=== PATIENT | female | born 1980 | race Caucasian/White ===

== ENCOUNTER 2025-02-24 13:52 | Inpatient (IN) ==
--- NOTE | 2025-02-24 13:59 | Emergency Department Note ---
Impression & Plan Pericardial effusion, Pleural effusion, Bilateral edema of lower extremity, Hypothyroidism, Anxiety ED Provider Note NAME: JEN MARIEE AGE: 45 SEX: F : 1980 ARRIVES VIA: Ambulance INFORMANT: Patient, ED PROVIDER(S): Eligio Malagon DO CHIEF COMPLAINT: Fluid retention HPI: The patient is a 45-year-old female who presented to the emergency department from the [facility] for fluid retention. The patient has other complaints that she has been noticing over the course the last several days. The patient has been having problems with leg swelling abdominal distention weight gain chest pain difficulty breathing as well as headache. She had outpatient labs done at the [facility] which included a TSH that was elevated. She was sent to the emergency department for further evaluation. She denies having any hemoptysis. ROS: See above HPI for pertinent positives & negatives. A total of 10 systems reviewed and were otherwise negative. PAST MEDICAL HISTORY: See Below PAST SURGICAL HISTORY: See Below FAMILY HISTORY: See Below SOCIAL HISTORY: See Below HOME MEDICATIONS: See Below ALLERGIES: See Below VITALS: See Below PHYSICAL EXAMINATION: GENERAL: Patient is awake alert in no acute distress patient is resting comfortably and showing no signs of anxiety EYES: The conjunctivae are clear. The pupils are round and reactive. EARS, NOSE, MOUTH AND THROAT: The nose is without any evidence of any deformity. NECK: The neck is nontender and supple. RESPIRATORY: Normal respiratory effort is noted there is no evidence of wheezing rhonchi or rales CARDIOVASCULAR: Regular rate and rhythm noted there no murmurs rubs or gallops normal S1 normal S2. GASTROINTESTINAL: The abdomen is distended. There is diffuse tenderness to palpation but no specific guarding or rigidity. MUSCULOSKELETAL/EXTREMITIES: There is no evidence of gross deformity full range of motion is noted in the hips and shoulders. SKIN: Lower extremity edema was noted bilaterally. NEUROLOGIC: Patient is awake alert and oriented x3 strength is symmetric patellar reflexes are 2+ bilaterally MEDICAL DECISION MAKING: The patient is a 45-year-old female who presented to the emergency department for an evaluation of lower extremity swelling abdominal distention chest pain trouble breathing as well as a headache. The patient is currently at the [facility] inpatient treatment. She had outpatient labs done which showed her TSH was very high. She was sent to the emergency department today for further workup. Patient's vital signs are reassuring. I discussed patient's laboratory and radiographic studies with her. She was found have signs of a small pleural effusion as well as a possible pericardial effusion. She may require further cardiac workup but I do not feel she would be able to arrange this as an outpatient given her current situation. For this reason I discussed her condition with the on-call [facility] hospitalist. Triage Nursing notes reviewed. Prior medical records reviewed Vital Signs: reviewed and remarkable for no significant abnormalities Differential diagnosis: Cardiac ischemia, aortic dissection, pulmonary embolism, pneumothorax, pneumonia, pericarditis, myocarditis, esophageal rupture, GERD, cholecystitis, pancreatitis, musculoskeletal, as well as other pathologies. ER treatment provided: See below Diagnostics interpreted by me: ECG: EKG was obtained in the emergency department. My interpretation is normal sinus rhythm at 76 bpm. There is no ectopy. There is no acute ST segment abnormalities noted. QTc was 461 ms. Cardiac Monitoring: An order was placed for continuous cardiac monitoring. The monitor shows a rate of 75 bpm with sinus rhythm. Laboratory studies: As stated above and show below. Imaging studies: See below. Radiographic imaging was reviewed by myself Consultation(s): I discussed this case with Dr. Mehta who is on-call for the [facility] group. Past Med/Surg History Problem List (Updated 02/24/25 @ 17:17 by Eligio Malagon DO) Anxiety (Acute) Hypothyroidism (Acute) Bilateral edema of lower extremity (Acute) Pleural effusion (Acute) Pericardial effusion (Acute) Medical History Bipolar disorder Depression with anxiety Hypothyroid Social History Smoking Status: Unknown if ever smoked Preferred Language: Spanish Feels Safe at Home: Yes Results & Data (ED) Vital Signs Vital Signs - 24 hr 02/24/25 13:57 02/24/25 13:59 02/24/25 14:08 Temperature 37.3 C Temperature Source Oral Pulse Rate 78 90 Pulse Rate from SpO2 Sensor Pulse Rhythm Regular Respiratory Rate 18 Respiratory Effort / Characteristics Non-Labored Spontaneous Respiratory Depth Normal Respiratory Pattern Regular Blood Pressure 178/73 H Blood Pressure Mean 108 Blood Pressure Position Sitting Pulse Oximetry 96 96 Oxygen Delivery Method Room Air Sepsis Recent Fever Within 48 Hours No Sepsis New/Unexplained Change in Mental Status No Sepsis Action Taken by Nursing No Action Required 02/24/25 14:12 02/24/25 14:33 02/24/25 14:33 Temperature Temperature Source Pulse Rate 75 Pulse Rate from SpO2 Sensor 76 Pulse Rhythm Respiratory Rate 17 Respiratory Effort / Characteristics Respiratory Depth Respiratory Pattern Blood Pressure 123/66 123/66 Blood Pressure Mean 94 94 Blood Pressure Position Pulse Oximetry 96 Oxygen Delivery Method Sepsis Recent Fever Within 48 Hours Sepsis New/Unexplained Change in Mental Status Sepsis Action Taken by Nursing 02/24/25 14:42 02/24/25 15:19 02/24/25 15:19 Temperature Temperature Source Pulse Rate 88 Pulse Rate from SpO2 Sensor 88 Pulse Rhythm Respiratory Rate 12 Respiratory Effort / Characteristics Respiratory Depth Respiratory Pattern Blood Pressure 99/69 L 99/69 L Blood Pressure Mean 73 73 Blood Pressure Position Pulse Oximetry 100 Oxygen Delivery Method Sepsis Recent Fever Within 48 Hours Sepsis New/Unexplained Change in Mental Status Sepsis Action Taken by Nursing 02/24/25 15:21 02/24/25 15:33 02/24/25 15:45 Temperature Temperature Source Pulse Rate 78 78 81 Pulse Rate from SpO2 Sensor 78 79 76 Pulse Rhythm Respiratory Rate 21 13 15 Respiratory Effort / Characteristics Respiratory Depth Respiratory Pattern Blood Pressure Blood Pressure Mean Blood Pressure Position Pulse Oximetry 95 94 93 Oxygen Delivery Method Sepsis Recent Fever Within 48 Hours Sepsis New/Unexplained Change in Mental Status Sepsis Action Taken by Nursing 02/24/25 15:51 02/24/25 16:00 Temperature Temperature Source Pulse Rate 72 75 Pulse Rate from SpO2 Sensor 72 75 Pulse Rhythm Respiratory Rate 13 12 Respiratory Effort / Characteristics Respiratory Depth Respiratory Pattern Blood Pressure Blood Pressure Mean Blood Pressure Position Pulse Oximetry 93 94 Oxygen Delivery Method Sepsis Recent Fever Within 48 Hours Sepsis New/Unexplained Change in Mental Status Sepsis Action Taken by Assisted Medications Current Medication List: was personally reviewed by ga Laboratory Data Attestation: I reviewed the patient's lab results. 02/24/25 14:00 02/24/25 14:00 Lab Results 02/24/25 02/24/25 Range/Units 14:00 Unknown WBC 8.07 (4.8-10.8) K/ul RBC 3.91 L (4.20-5.40) M/uL Hgb 11.6 L (12.0-16.0) g/dl Hct 35.4 L (37.0-47.0) % MCV 90.5 (80.0-100.0) fL MCH 29.7 (25.0-34.0) pg MCHC 32.8 (32.0-36.0) g/dL RDW Std Deviation 45.3 (36.4-46.3) fL RDW Coeff of Satish 13.8 (11.5-14.5) % Plt Count 221 (130-400) K/uL MPV 10.7 (9.4-12.4) fL Immature Gran % (Auto) 0.9 % Neut % (Auto) 60.3 % Lymph % (Auto) 28.3 % [place] % (Auto) 7.1 % Eos % (Auto) 2.7 % Baso % (Auto) 0.7 % Neut # (Auto) 4.87 (1.40-6.50) K/uL Lymph # (Auto) 2.28 (1.20-3.40) K/uL [place] # (Auto) 0.57 (0.11-0.59) K/uL Eos # (Auto) 0.22 (0.00-0.50) K/uL Baso # (Auto) 0.06 (0.00-0.20) K/uL Immature Gran # (Auto) 0.07 (0.01-0.20) K/uL PT 9.8 (9.0-12.0) Seconds INR 0.9 (0.9-1.1) APTT 25 (21-31) Seconds PTT Ratio 0.9 D-Dimer 330 (0-500) ug/L FEU Sodium 138 (136-145) mmol/L Potassium 4.0 (3.5-5.1) mmol/L Chloride 103 (98-107) mmol/L Carbon Dioxide 27 (21-32) mmol/L Anion Gap 8 (3-11) BUN 17 (6-23) mg/dl Creatinine 1.11 (0.6-1.2) mg/dl Est Cr Clr Drug Dosing Not Reportable eGFR 62.47 BUN/Creatinine Ratio 15.3 (10-20) Glucose 117 H (70-99(Fasting)) mg/dl Calcium 9.1 (8.6-10.3) mg/dl Magnesium 2.2 (1.7-2.4) mg/dl Total Bilirubin 0.3 (0.2-1.0) mg/dl AST 19 (13-39) U/L ALT 16 (7-52) U/L Alkaline Phosphatase 50 (34-104) U/L Troponin I High Sens < 2.3 (0-14) pg/ml B-Natriuretic Peptide 48 (0-100) pg/ml Total Protein 7.2 (6.0-8.3) gm/dl Albumin 4.2 (3.4-5.0) gm/dl Globulin 3.0 (2.5-4.0) gm/dl Albumin/Globulin Ratio 1.4 (0.9-2) Lipase 29 (11-82) U/L TSH 12.215 H (0.300-4.500) uIu/ml Free T4 0.78 (0.61-1.60) ng/dl Urine Color Yellow Urine Appearance Clear (Clear) Urine pH 7.0 (4.5-7.5) Ur Specific [place] 1.012 (1.000-1.030) Urine Protein Negative (Negative) Urine Glucose (UA) Negative (Negative) Urine Ketones Negative (Negative) Urine Blood Negative (Negative) Urine Nitrite Negative (Negative) Urine Bilirubin Negative (Negative) Urine Urobilinogen Negative (Negative) Ur Leukocyte Esterase Negative (Negative) Urine Comment [place] 0.2 L (0.6-1.2) mmol/L Administered Medications Discontinued Medications Ioversol (Optiray 320 125ml) 119 ml IV ONCE ONE Stop: 02/24/25 15:10 Last Admin: 02/24/25 15:09 Dose: 119 ml Documented By: HECTOR Lorazepam (Lorazepam 1 Mg Tab) 1 mg PO NOW STA Stop: 02/24/25 14:44 Last Admin: 02/24/25 14:50 Dose: 1 mg Documented By: CARLTON Imaging Data Attestation: I personally reviewed and interpreted this imaging study as follows: My Impression: 1 view chest x-ray was obtained in the emergency department. My interpretation is no free air or definite infiltrate, final report below. Radiologist's Impression: Chest X-Ray 02/24/25 13:57 Chest radiograph, one view History: Chest pain Comparison: None Findings: Single AP view of the chest performed. No focal consolidation or pleural effusion. No pneumothorax. The cardiomediastinal silhouette is within normal limits. Normal pulmonary vascularity. No evidence for lymphadenopathy. No visualized bony or soft tissue abnormality. Impression: Normal chest radiograph Electronically signed by Casey Kelsey 02-24-2025 2:25 PM Abdomen/Pelvis CT 02/24/25 14:02 EXAMINATION: CT of the abdomen and pelvis performed after the administration of IV contrast TECHNIQUE: Helical CT images from the lung bases through the symphysis pubis were obtained with contrast. Coronal and sagittal reformatted images were generated at a workstation for further assessment. Dose reduction techniques were achieved by using automatic exposure control and/or adjustment of mA and/or kV according to patient size and/or use of iterative reconstruction technique. COMPARISON: None HISTORY: Abdominal pain FINDINGS: Liver: No suspicious liver lesions. Portal veins appear patent. Gallbladder: Cholecystectomy Spleen: Normal size. Pancreas: No suspicious pancreatic lesions. The pancreatic duct is not dilated. Adrenal glands: No adrenal nodules. Kidneys: No hydronephrosis or obstructing renal stones. Bladder / Pelvic organs: Unremarkable. Bowel: No bowel obstruction. No abnormal bowel wall thickening. The appendix is surgically absent. There is moderate gaseous distention of the large bowel, and a moderate colonic stool burden primarily proximally. Lymph nodes: No retroperitoneal, mesenteric, or pelvic lymphadenopathy. Peritoneum / Retroperitoneum: No free fluid or air within the abdomen. Vessels: No infrarenal aortic aneurysm. Bones and soft tissues: No suspicious lesion in the bones. IMPRESSION: No acute finding in the abdomen or pelvis. Electronically signed by Casey Kelsey 02-24-2025 3:31 PM Chest CTA 02/24/25 14:02 CT pulmonary angiogram with IV contrast History: Chest pain COMPARISON: None TECHNIQUE: CT angiography of the chest was performed without IV contrast followed by IV contrast, including 3D post processing CTA image reconstruction. Dose reduction techniques were achieved by using automatic exposure control and/or adjustment of mA and/or kV according to patient size and/or use of iterative reconstruction technique. FINDINGS: Diagnostic quality: Adequate There is no evidence for pulmonary embolism. The heart is not enlarged. Small pericardial effusion. There are no abnormally enlarged hilar or mediastinal lymph nodes. The central tracheobronchial tree is clear. The lungs are clear. Trace right pleural effusion. There is a small area of fluid in the anterior mediastinum. Limited visualized upper abdomen. No destructive osseous changes are seen. IMPRESSION: No evidence for pulmonary embolism. There is a small pericardial effusion and a trace right pleural effusion. Consider pericarditis. Electronically signed by Casey Kelsey 02-24-2025 3:[address] 02/24/25 14:02 CT head without contrast History: Headache Comparison: None Technique: Using multidetector thin collimation helical acquisition technique, axial, coronal and sagittal CT images from the skull base to the vertex were obtained without intravenous contrast. Dose reduction techniques were achieved by using automatic exposure control and/or adjustment of mA and/or kV according to patient size and/or use of iterative reconstruction technique. Findings: No intracranial hemorrhage, mass-effect, or midline shift. The ventricles are proportionate to the cerebral sulci. The robles to white matter differentiation of the cerebral hemispheres is preserved. The basal cisterns are patent. The visualized paranasal sinuses are clear. Mastoid air cells are clear. Impression: No acute intracranial pathology. Electronically signed by Casey Kelsey 02-24-2025 3:27 PM Discharge Plan Visit Data Chief Complaint: Recheck/Abnormal Lab/Rx Stated Complaint: ABNORMAL LAB, HEADACHE, BACK PAIN, FLUID RETENTION ED Provider: Eligio Malagon Discharge Problem: Pericardial effusion, Pleural effusion, Bilateral edema of lower extremity, Hypothyroidism, Anxiety Patient Disposition: Being Evaluated by Hospitalist Condition: Fair Forms Stand Alone Forms: My [facility] Referrals Referrals: PCP,NO [Physician] -
[2025-02-24 14:16] LABS: Hematocrit (blood only) 35.4 % (37.0-47.0); Hemoglobin 11.6 g/dl (12.0-16.0); Immature Granulocytes # (auto) 0.07 K/uL (0.01-0.20); Immature Granulocytes % (auto) 0.9 %; Mean Corpuscular Hemoglobin 29.7 pg (25.0-34.0); Mean Corpuscular Volume 90.5 fL (80.0-100.0); Platelet Count 221 K/uL (130-400); RDW Standard Deviation 45.3 fL (36.4-46.3); Red Blood Count 3.91 M/uL (4.20-5.40); White Blood Count 8.07 K/ul (4.8-10.8)
[2025-02-24 14:20] LABS: INR 0.9 (0.9-1.1); Partial Thromboplastin Time 25 Seconds (21-31); Prothrombin Time 9.8 Seconds (9.0-12.0)
--- NOTE | 2025-02-24 14:26 | XRay Report ---
Chest radiograph, one view History: Chest pain Comparison: None Findings: Single AP view of the chest performed. No focal consolidation or pleural effusion. No pneumothorax. The cardiomediastinal silhouette is within normal limits. Normal pulmonary vascularity. No evidence for lymphadenopathy. No visualized bony or soft tissue abnormality. Impression: Normal chest radiograph Electronically signed by Casey Kelsey 02-24-2025 2:25 PM
[2025-02-24 14:29] LABS: Alanine Aminotransferase 16 U/L (7-52); Albumin Globulin Ratio 1.4 (0.9-2); Alkaline Phosphatase 50 U/L (34-104); Anion Gap 8 (3-11); Bilirubin,Total 0.3 mg/dl (0.2-1.0); Blood Urea Nitrogen 17 mg/dl (6-23); Calcium 9.1 mg/dl (8.6-10.3); Carbon Dioxide 27 mmol/L (21-32); Chloride 103 mmol/L (98-107); Globulin 3.0 gm/dl (2.5-4.0); Glucose 117 mg/dl (70-99(Fasting)); Lipase 29 U/L (11-82); Magnesium 2.2 mg/dl (1.7-2.4); Potassium 4.0 mmol/L (3.5-5.1); Sodium 138 mmol/L (136-145); Total Protein 7.2 gm/dl (6.0-8.3)
[2025-02-24 14:45] LABS: Thyroid Stimulating Hormone 12.215 uIu/ml (0.300-4.500)
[2025-02-24] MEDS: LORazepam 1 MG TAB PO STA (14:50)
[2025-02-24 15:08] LABS: Appearance Urine Clear (Clear); Glucose Urine UA Negative (Negative)
[2025-02-24] MEDS: OPTIRAY 320 125ml IV ONE (15:09)
--- NOTE | 2025-02-24 15:28 | CT Scan Report ---
CT head without contrast History: Headache Comparison: None Technique: Using multidetector thin collimation helical acquisition technique, axial, coronal and sagittal CT images from the skull base to the vertex were obtained without intravenous contrast. Dose reduction techniques were achieved by using automatic exposure control and/or adjustment of mA and/or kV according to patient size and/or use of iterative reconstruction technique. Findings: No intracranial hemorrhage, mass-effect, or midline shift. The ventricles are proportionate to the cerebral sulci. The robles to white matter differentiation of the cerebral hemispheres is preserved. The basal cisterns are patent. The visualized paranasal sinuses are clear. Mastoid air cells are clear. Impression: No acute intracranial pathology. Electronically signed by Casey Kelsey 02-24-2025 3:27 PM
--- NOTE | 2025-02-24 15:29 | CT Scan Report ---
CT pulmonary angiogram with IV contrast History: Chest pain COMPARISON: None TECHNIQUE: CT angiography of the chest was performed without IV contrast followed by IV contrast, including 3D post processing CTA image reconstruction. Dose reduction techniques were achieved by using automatic exposure control and/or adjustment of mA and/or kV according to patient size and/or use of iterative reconstruction technique. FINDINGS: Diagnostic quality: Adequate There is no evidence for pulmonary embolism. The heart is not enlarged. Small pericardial effusion. There are no abnormally enlarged hilar or mediastinal lymph nodes. The central tracheobronchial tree is clear. The lungs are clear. Trace right pleural effusion. There is a small area of fluid in the anterior mediastinum. Limited visualized upper abdomen. No destructive osseous changes are seen. IMPRESSION: No evidence for pulmonary embolism. There is a small pericardial effusion and a trace right pleural effusion. Consider pericarditis. Electronically signed by Casey Kelsey 02-24-2025 3:29 PM
--- NOTE | 2025-02-24 15:31 | CT Scan Report ---
EXAMINATION: CT of the abdomen and pelvis performed after the administration of IV contrast TECHNIQUE: Helical CT images from the lung bases through the symphysis pubis were obtained with contrast. Coronal and sagittal reformatted images were generated at a workstation for further assessment. Dose reduction techniques were achieved by using automatic exposure control and/or adjustment of mA and/or kV according to patient size and/or use of iterative reconstruction technique. COMPARISON: None HISTORY: Abdominal pain FINDINGS: Liver: No suspicious liver lesions. Portal veins appear patent. Gallbladder: Cholecystectomy Spleen: Normal size. Pancreas: No suspicious pancreatic lesions. The pancreatic duct is not dilated. Adrenal glands: No adrenal nodules. Kidneys: No hydronephrosis or obstructing renal stones. Bladder / Pelvic organs: Unremarkable. Bowel: No bowel obstruction. No abnormal bowel wall thickening. The appendix is surgically absent. There is moderate gaseous distention of the large bowel, and a moderate colonic stool burden primarily proximally. Lymph nodes: No retroperitoneal, mesenteric, or pelvic lymphadenopathy. Peritoneum / Retroperitoneum: No free fluid or air within the abdomen. Vessels: No infrarenal aortic aneurysm. Bones and soft tissues: No suspicious lesion in the bones. IMPRESSION: No acute finding in the abdomen or pelvis. Electronically signed by Casey Kelsey 02-24-2025 3:31 PM
--- NOTE | 2025-02-24 17:02 | History & Physical Report ---
Date of Service February 24, 2025 Assessment & Plan Plan #Hypothyroidism TSH elevated 12.215 Free T4 WNL Disposition: VTE PPx: History of Present Illness Chief Complaint: Chest pain, b/l LE edema, elevated TSH Primary Care Provider: Tanya Smith Mrs. Orourke is a 45-year-old female with PMH of hypothyroidism. She presented f [facility] on 02/23 for "elevated TSH". Patient also noted back pain, fluid buildup in lower extremity bilaterally, and chest pain. Patient is mildly hypotensive at 99/69 at time of admission; vitals otherwise stable. ED course: Ativan 1 mg p.o. ROS: Patient endorses Patient denies Past Med/Surg History Problem List (Updated 02/24/25 @ 16:28 by Eligio Malagon DO) Hypothyroidism (Acute) Bilateral edema of lower extremity (Acute) Pleural effusion (Acute) Pericardial effusion (Acute) Medical History Bipolar disorder Depression with anxiety Hypothyroid Social History Smoking Status: Unknown if ever smoked Preferred Language: Hebrew Feels Safe at Home: Yes Review of Systems Review of Systems: See HPI above Physical Exam Physical Exam: General: no acute distress; non-toxic appearing; well-nourished; cooperative HEENT: normocephalic, atraumatic; no scleral icterus; PERRLA w/ EOMs intact; vision and hearing grossly intact Neck: supple; no lymphadenopathy; trachea midline Skin: warm, dry without signs of tenting; no cyanosis; no rashes, bruising, lesions, or erythema noted CV: chest wall NTP; RRR; S1/S2 normal; no murmurs/rubs/gallops; pulses intact and symmetric at radial, DP, and PT Lungs: no acute respiratory distress; symmetrical chest wall expansion; clear breath sounds across all lung stone w/o adventitious sounds; no wheezing ABD: Soft, NTP; BS present; no rebound/guarding; no distention MSK: no tics or fasciculations; no edema noted in the LEs b/l, nonerythematous Neuro: A&Ox3; normal mood and affect; fluent speech; no focal deficits; sensation grossly intact in the LEs b/l Results & Data Results & Data Vital Signs (Past 12 Hours) Vital Signs Temp Pulse Resp BP Pulse Ox O2 Del Method 02/24/25 16:00 75 12 94 02/24/25 15:51 72 13 93 02/24/25 15:45 81 15 93 02/24/25 15:33 78 13 94 02/24/25 15:21 78 21 95 02/24/25 15:19 99/69 L 02/24/25 15:19 99/69 L 02/24/25 14:42 88 12 100 02/24/25 14:33 123/66 02/24/25 14:33 123/66 02/24/25 14:12 75 17 96 02/24/25 14:08 90 02/24/25 13:59 37.3 C 78 18 178/73 H 96 Room Air 02/24/25 13:57 96 Laboratory Results Abnormal lab results 02/24/25 Range/Units 14:00 RBC 3.91 L (4.20-5.40) M/uL Hgb 11.6 L (12.0-16.0) g/dl Hct 35.4 L (37.0-47.0) % Glucose 117 H (70-99(Fasting)) mg/dl TSH 12.215 H (0.300-4.500) uIu/ml [place] 0.2 L (0.6-1.2) mmol/L Diagnostic Findings Chest X-Ray 02/24/25 13:57 Chest radiograph, one view History: Chest pain Comparison: None Findings: Single AP view of the chest performed. No focal consolidation or pleural effusion. No pneumothorax. The cardiomediastinal silhouette is within normal limits. Normal pulmonary vascularity. No evidence for lymphadenopathy. No visualized bony or soft tissue abnormality. Impression: Normal chest radiograph Electronically signed by Casey Kelsey 02-24-2025 2:25 PM Abdomen/Pelvis CT 02/24/25 14:02 EXAMINATION: CT of the abdomen and pelvis performed after the administration of IV contrast TECHNIQUE: Helical CT images from the lung bases through the symphysis pubis were obtained with contrast. Coronal and sagittal reformatted images were generated at a workstation for further assessment. Dose reduction techniques were achieved by using automatic exposure control and/or adjustment of mA and/or kV according to patient size and/or use of iterative reconstruction technique. COMPARISON: None HISTORY: Abdominal pain FINDINGS: Liver: No suspicious liver lesions. Portal veins appear patent. Gallbladder: Cholecystectomy Spleen: Normal size. Pancreas: No suspicious pancreatic lesions. The pancreatic duct is not dilated. Adrenal glands: No adrenal nodules. Kidneys: No hydronephrosis or obstructing renal stones. Bladder / Pelvic organs: Unremarkable. Bowel: No bowel obstruction. No abnormal bowel wall thickening. The appendix is surgically absent. There is moderate gaseous distention of the large bowel, and a moderate colonic stool burden primarily proximally. Lymph nodes: No retroperitoneal, mesenteric, or pelvic lymphadenopathy. Peritoneum / Retroperitoneum: No free fluid or air within the abdomen. Vessels: No infrarenal aortic aneurysm. Bones and soft tissues: No suspicious lesion in the bones. IMPRESSION: No acute finding in the abdomen or pelvis. Electronically signed by Casey Kelsey 02-24-2025 3:31 PM Chest CTA 02/24/25 14:02 CT pulmonary angiogram with IV contrast History: Chest pain COMPARISON: None TECHNIQUE: CT angiography of the chest was performed without IV contrast followed by IV contrast, including 3D post processing CTA image reconstruction. Dose reduction techniques were achieved by using automatic exposure control and/or adjustment of mA and/or kV according to patient size and/or use of iterative reconstruction technique. FINDINGS: Diagnostic quality: Adequate There is no evidence for pulmonary embolism. The heart is not enlarged. Small pericardial effusion. There are no abnormally enlarged hilar or mediastinal lymph nodes. The central tracheobronchial tree is clear. The lungs are clear. Trace right pleural effusion. There is a small area of fluid in the anterior mediastinum. Limited visualized upper abdomen. No destructive osseous changes are seen. IMPRESSION: No evidence for pulmonary embolism. There is a small pericardial effusion and a trace right pleural effusion. Consider pericarditis. Electronically signed by Casey Kelsey 02-24-2025 3:[address] 02/24/25 14:02 CT head without contrast History: Headache Comparison: None Technique: Using multidetector thin collimation helical acquisition technique, axial, coronal and sagittal CT images from the skull base to the vertex were obtained without intravenous contrast. Dose reduction techniques were achieved by using automatic exposure control and/or adjustment of mA and/or kV according to patient size and/or use of iterative reconstruction technique. Findings: No intracranial hemorrhage, mass-effect, or midline shift. The ventricles are proportionate to the cerebral sulci. The robles to white matter differentiation of the cerebral hemispheres is preserved. The basal cisterns are patent. The visualized paranasal sinuses are clear. Mastoid air cells are clear. Impression: No acute intracranial pathology. Electronically signed by Casey Kelsey 02-24-2025 3:27 PM ECG Additional Comments: ECG revealed NSR at 76 bpm; QTc 461 Code Status & VTE Plan VTE Prophylaxis Plan VTE Prophylaxis will be ordered: Yes PG Care Time/CCT Total # of Minutes Spent Total Time Spent with Patient: Total time spent is greater than 50% in coordination of care (as documented) at patient's floor/unit and/or counseling patient: Coding
[2025-02-24 17:44] LABS: Creatine Kinase 116 U/L (26-192)
[2025-02-24] MEDS ORDERED: ACETAMINOPHEN 325 MG TAB PO PRN (19:02)
[2025-02-24] MEDS ORDERED: CYCLOBENZAPRINE HCL 5 MG TAB PO PRN (19:02)
[2025-02-24] MEDS: HYDROmorphone INJ 2 MG/ML SYR/VIAL IV STA (19:17)
[2025-02-24] MEDS: LURASIDONE HCL 20 MG TAB PO SCH (21:09)
[2025-02-24] MEDS: DOXEPIN HCL 50 MG CAPSULE PO SCH (21:09)
[2025-02-24] MEDS: busPIRone 15 MG TAB PO SCH (21:10)
--- NOTE | 2025-02-24 21:34 | History & Physical Report ---
Date of Service February 24, 2025 Assessment & Plan (1) Back pain: Plan: As above in the HPI. (2) Normocytic normochromic anemia: Plan: As above in the HPI. (3) Pruritus: Plan: As above in the HPI. (4) Leg edema: Plan: As above in the HPI. (5) Pericardial effusion: Plan: As above in the HPI. Admission and Anticipated Discharge Date Admission Date: February 24, 2025 History of Present Illness Chief Complaint: "My lower back hurts. It goes down my right leg down to my right foot. I did not fall down or twist my back. I didn't bump into anything or anyone. I didn't pass out. My lower back and right leg and whole body, actually, feels like it's on fire and freezing, sharp and cool, then numb, not tingly, everywhere, everything, all at once. The back pain started this afternoon at home (02/24/2025, 1:00pm). Get this too: my right forearm has had this itchy rash for the past 1 month, and so I scratch and I scratch, and I scratch some more, and it doesn't stop itching. My left arm is fine, completely fine. Then, for the past 2 nights, I have been sweating and my bedsheets have been soaked with sweat when I wake up in the morning. Then, today, I noted that my legs are balloons, see, I can press into my legs and my entire knuckle fits inside the dimple I make when I press my fingers into my legs. My breathing is fine. No problem there at all. It's my lower back. You think I have some herniated disks, doc?" Primary Care Provider: Tanya Smith 45 years old female with PMH of FULL CODE @ home alone, obesity with BMI 38.8 (height 170.18 cm; weight 112.4 kg), hyperlipidemia on atorvastatin 20mg PO qhs, allergic rhinitis on loratadine 10mg PO daily, hypothyroidism on synthroid 224ug PO daily, non-diabetic peripheral neuropathy of the bilateral feet on gabapentin 300mg PO tid, and a raft of mental health issues including: former nicotine dependence/tobacco abuse, no subsequent development of COPD, not on home O2 or home steroids, instead, patient currently vapes, but not on a daily basis, and with the last vaping session having occurred 3 weeks ago, former opiate abuse now on subutex 2mg SL bid, bipolar disorder on lurasidone 40mg PO qpm, topamax 25mg PO bid, major depression on doxepin 100mg PO qhs and fluoxetine 10mg PO daily, anxiety disorder on buspirone 15mg PO tid and hydroxyzine 50mg PO tid prn anxiety, insomnia disorder on trazodone 100mg PO qhs, attention deficit disorder on guanfacine 0.5mg PO bid, chronic pain disorder with muscle spasms in the back on cyclobenzaprine 5mg PO tid prn back spasms, who reports: "My lower back hurts. It goes down my right leg down to my right foot. I did not fall down or twist my back. I didn't bump into anything or anyone. I didn't pass out. My lower back and right leg and whole body, actually, feels like it's on fire and freezing, sharp and cool, then numb, not tingly, everywhere, everything, all at once. The back pain started this afternoon at home (02/24/2025, 1:00pm). Get this too: my right forearm has had this itchy rash for the past 1 month, and so I scratch and I scratch, and I scratch some more, and it doesn't stop itching. My left arm is fine, completely fine. Then, for the past 2 nights, I have been sweating and my bedsheets have been soaked with sweat when I wake up in the morning. Then, today, I noted that my legs are balloons, see, I can press into my legs and my entire knuckle fits inside the dimple I make when I press my fingers into my legs. My breathing is fine. No problem there at all. It's my lower back. You think I have some herniated disks, doc?" Patient denies antecedent/coincident fevers, chills, cough, wheeze, sore throat, hemoptysis, shortness of breath, dyspnea on exertion, chest pains, palpitations, pleurisy, nausea, vomiting, diarrhea, abdominal pain, pelvic pain, hematemesis, hematochezia, melena, hematuria, dysuria, frequency, urgency, headaches, dizziness, lightheadedness, visual changes, hearing changes, weakness, falls, syncope, trauma, travel history, sick contacts, or food/drug ingestions novel or new. All other review of systems are reported as negative by the patient on obse rvation date 02/24/2025. In [facility] ER bed #B10, patient was afebrile @ 37.3 degrees Celsius, HR 78, RR 18, O2 sat 96% on room air, and BP 178/73 (02/24/2025 1:59pm). Exam was noted for a non-tender spine, non-tender paraspinal exam (cervical, thoracic, lumbar), with straight leg raising positive for the RLE and straight leg raising negative for the LLE. In addition, there were no ecchymoses or hematoma(s) on the back, and no erythema, edema, induration, warmth, crepitus, fluctuance, discharge (sanguineous, serous, suppurative), ulceration, malodor, or lymphangitic streaking anywhere on the back or body. Patient did manifest with 3+ pitting pedal edema with extension to the mid-shins bilaterally, but sparing the upper shins bilaterally, knees, hips, and thighs. Abdomen was protuberant by virtue of patient's obesity with BMI 38.8 (height 170.18 cm; weight 112.4 kg), but non-distended and non-tender, with no fluid wave on auscultation/percussion of the abdomen from one side to the other side of the abdomen. Labs in [facility] ER bed #B10 were noted for: WBC 8.07, N60 L28 M7 E3 B1, Hb 11.6, MCV 90.5, MCHC 32.8, platelet 221 (02/24/2025, 2:00pm). INR 0.9 (02/24/2025, 2:00pm). Na 138, K 4.0, BUN 17, creatinine 1.11, glucose 117, Ca 9.1, Mg 2.2, AST 19, ALT 16, ALK PHOS 50, TBili 0.3 (02/24/2025, 2:00pm). Troponin-I #1 < 2.3 pg/mL (02/24/2025, 2:00pm). BNP 48 pg/mL (02/24/2025, 2:00pm). TSH 12.215 uIU/mL (02/24/2025, 2:00pm). Free T4 0.78 ng/dL (02/24/2025, 2:00pm). Free T3 2.85 pg/mL (02/24/2025, 2:00pm). U/A: LE-, nitrite- (02/24/2025, 2:00pm). D-dimer 330 ug/L (02/24/2025, 2:00pm). Additional testing in [facility] ER bed #B10 included: Portable CXR (02/24/2025, 1:57pm): 1. No infiltrate, effusion, cardiomegaly, pulmonary vascular congestion, or pneumothorax (by my review). CT abd/pelvis with IV contrast (02/24/2025, 2:02pm): 1. No acute findings in abdomen or pelvis. CTA chest (02/24/2025, 2:02pm): 1. No evidence for pulmonary embolism. 2. There is a small pericardial effusion and a trace right pleural effusion. CT brain without contrast (02/24/2025, 2:02pm): 1. No acute bleed, mass, or midline shift. EKG (02/24/2025, 2:03pm): NSR @ 76, KS 166, QTC 461, no acute ST depressio ns/elevations, TWI, or q waves (by my review). Patient was subsequently placed in OBSERVATION on the hospitalist service @ [facility] on 02/24/2025 with the following diagnoses: 1. Acute lower back pain of unclear etiology, R/O herniated nucleus pulposus, R/O acute vertebral fracture. 2. Acute normocytic, normochromic anemia with initial Hb 11.6 g/dL, MCV 90.5, MCHC 32.8 (02/24/2025, 2:00pm), of unclear etiology. 3. Acute onset of pruritic right forearm for the past 1 month and acute onset of night sweats for the past 2 nights, of unclear etiology. 4. Acute onset of bilateral lower extremity edema, of unclear etiology. 5. Incidental finding of "small pericardial effusion and a trace right pleural effusion" (as noted on 02/24/2025, 2:02pm CTA chest), of unclear etiology. To address #1, patient awaits MRI lumbar spine with/without IV contrast (02/24/2025, 7:05pm). In the interim, I have ordered tylenol 650mg PO q6 prn pain 1-3, headache, temp > 100.4 degrees Fahrenheit, dilaudid 2mg IV x 1 dose now (02/24/2025, 7:05pm), PT/OT Service evaluations in the 02/25/2025 am. To address #2, patient awaits repeat Hb testing in the 02/25/2025 am. I will reserve packed RBC transfusion for Hb level less than 7 g/dL in this patient who reports no mucosal bleeding and who remains hemodynamically stable. In the interim, I have ordered Fe, TIBC, and ferritin levels to see if patient suffers from iron deficiency anemia, thalassemia, anemia of chronic disease (e.g., hypothyroidism), or sideroblastic anemia. To address #3, patient has been started on hydrocortisone 1% cream applied topically to the right forearm qid prn pruritus. To address #4, patient awaits TTE (02/24/2025, 5:07pm) as patient has already ruled out for acute DVT of the lower extremities given normal D-dimer 330 ug/L (02/24/2025, 2:00pm). To address #5, patient awaits TTE (02/24/2025, 5:07pm). Of note, my clinical suspicion for acute CHF remains low as patient has no stigmata (e.g., pulse pressure narrowing, JVD, bibasilar crackles) on exam to suggest acute CHF. Allergies Allergy/AdvReac Type Severity Reaction Status Date / Time cefaclor [From [facility]] Allergy Hives Verified 02/24/25 17:40 azithromycin AdvReac Vomiting Verified 02/24/25 18:08 Home Medications Medication Instructions Recorded Confirmed Type acetaminophen 325 mg tablet 650 mg PO Q6 PRN Pain 02/24/25 02/24/25 History (Tylenol) atorvastatin 20 mg tablet 20 mg PO HS 02/24/25 02/24/25 History buprenorphine HCl 2 mg sublingual 2 mg sublingual BID 02/24/25 02/24/25 History tablet buspirone 15 mg tablet 15 mg PO TID 02/24/25 02/24/25 History calcium carbonate 500 mg PO BID PRN REFLUX 02/24/25 02/24/25 History cholecalciferol (vitamin D3) 25 50 mcg PO QDB 02/24/25 02/24/25 History mcg (1,000 unit) tablet (Vitamin D3) cyclobenzaprine 5 mg tablet 5 mg PO TID PRN BACK SPASMS 02/24/25 02/24/25 History docusate sodium 100 mg capsule 100 mg PO DAILY 02/24/25 02/24/25 History doxepin 100 mg capsule 100 mg PO HS 02/24/25 02/24/25 History fluoxetine 10 mg capsule 10 mg PO DAILY 02/24/25 02/24/25 History gabapentin 300 mg capsule 300 mg PO TID 02/24/25 02/24/25 History guanfacine 1 mg tablet 0.5 mg PO BID 02/24/25 02/24/25 History hydroxyzine HCl 50 mg tablet 50 mg PO TID PRN Anxiety 02/24/25 02/24/25 History ibuprofen 600 mg tablet 600 mg PO Q6H PRN Inflammation 02/24/25 02/24/25 History levothyroxine 112 mcg tablet 224 mcg PO DAILYBB 02/24/25 02/24/25 History lidocaine HCl 4 % topical patch 1 patch topical DAILY 02/24/25 02/24/25 History loratadine 10 mg tablet 10 mg PO DAILY 02/24/25 02/24/25 History lurasidone 40 mg tablet 40 mg PO QPM 02/24/25 02/24/25 History nicotine 21 mg/24 hr daily 1 patch transdermal DAILY PRN 02/24/25 02/24/25 History transdermal patch Smoking Cessation ondansetron 4 mg disintegrating 4 mg PO TID PRN Nausea 02/24/25 02/24/25 History tablet topiramate 25 mg tablet (Topamax) 25 mg PO BID 02/24/25 02/24/25 History trazodone 100 mg tablet 100 mg PO HS 02/24/25 02/24/25 History triamcinolone acetonide-l.s.b. 0.1 1 applic topical TID PRN ECZEMA 02/24/25 02/24/25 History % topical cream Past Med/Surg History Problem List (Updated 02/24/25 @ 22:13 by Donis Mehta MD, PhD) Leg edema Pruritus Normocytic normochromic anemia Back pain Anxiety (Acute) Hypothyroidism (Acute) Bilateral edema of lower extremity (Acute) Pleural effusion (Acute) Pericardial effusion (Acute) Medical History Bipolar disorder Depression with anxiety Hypothyroid Family History Father No problems noted. Mother No problems noted. Social History Smoking Status: Current some day smoker Tobacco Type: E-cigarettes / Vaping Second Hand Exposure: No; Do You Dip or Chew Tobacco: No; Tobacco Cessation Education Requested by Patient: No Hx Alcohol Use: No (hasn't had a drink in 6 months) Hx Substance Use: No (hasn't used in 1.5 years) Preferred Language: French Communication Ability: Effective Miscellaneous Machine Operator Required: No Beliefs That Will Affect Care: None Current Living Situation: Homeless Other Information That Helps Us Care for You: No Feels Safe at Home: Yes Safety Concerns: Feels Safe At This Time Assistive Devices: None Review of Systems Constitutional: As above in the HPI. Physical Exam Constitutional: General: Comfortable, coherent, and cooperative. Not confused, obtunded, or lethargic. Patient speaks with regular debora, and in complete, fluent, and articulate 7-9 word sentences without pause, interruption, cough, or wheeze with admission O2 sat 96% on room air (02/24/2025 1:59pm). HEENT: Normocephalic, atraumatic. No nystagmus, gaze paresis, anisocoria, miosis, mydriasis, hyphema, scleral injection, conjunctivitis, or pterygium. No otorrhea or rhinorrhea. No pharyngeal erythema, edema, or discharge. Neck: Supple, no stridor, bruit, goiter, or hepato-jugular reflux. Jugular venous pressure is estimated to be 3 cm above the sternal angle of Stanislav, which in turn, is 5 cm above the level of the right atrium; with jugular venous pressure estimated to be 8 cm, then, there is no jugular venous distention on 02/24/2025. Lymphatics: No cervical (anterior/posterior), supraclavicular, infraclavicular, axillary, epitrochlear, or inguinal adenopathy. Chest: Symmetric rise and fall with respirations. Non-tender to palpation. Lungs: Clear to auscultation and percussion. No audible expiratory wheeze, egophony, pectoriloquy, increase in tactile fremitus, or flatness/dullness to percussion at the bases. Heart: Regular rate and rhythm. S1 and S2 noted. No S3 or S4 summation gallop. No tripartite friction rub. Grade II/ early systolic murmur @ LLSB without radiation to the carotids, axilla, or back, and which remains invariant in regards to the respiratory cycle. Abdomen: Soft, non-tender, non-distended. No rebound, guarding, Rivas's sign, or organomegaly. Bowel sounds auscultated in all 4 quadrants. Extremities: No clubbing, cyanosis. 3+ pitting pedal edema with extension to the mid-shins bilaterally, but sparing the upper shins bilaterally, knees, hips, and thighs. Back: Non-tender spine, non-tender paraspinal exam (cervical, thoracic, lumbar), with straight leg raising positive for the RLE and straight leg raising negative for the LLE. In addition, there were no ecchymoses or hematoma(s) on the back, and no erythema, edema, induration, warmth, crepitus, fluctuance, discharge (sanguineous, serous, suppurative), ulceration, malodor, or lymphangitic streaking anywhere on the back or body. Skin: No decubitus ulcer or enanthem or exanthem. Neuro: Awake and oriented in regards to person, place, time, and situation. DTR+. 5/5 motor strength in all 4 extremities, both proximally and distally. No myoclonus or tics or tremors. Genito-urinary: No urethral discharge. No wells catheter. Results & Data Results & Data Vital Signs (Past 12 Hours) Vital Signs Temp Pulse Resp BP Pulse Ox O2 Del Method 02/24/25 20:50 36.6 C 18 99 Room Air 02/24/25 20:40 36.6 C 02/24/25 19:00 70 19 124/69 95 02/24/25 18:48 67 14 96 02/24/25 18:33 80 17 96 02/24/25 18:01 73 16 119/67 94 02/24/25 18:01 119/67 02/24/25 17:42 73 16 94 02/24/25 17:33 112/59 L 02/24/25 17:33 112/59 L 02/24/25 17:30 81 18 97 02/24/25 17:30 83 02/24/25 17:21 94 02/24/25 17:12 93 02/24/25 17:06 92 02/24/25 16:42 94 02/24/25 16:00 75 12 94 02/24/25 15:51 72 13 93 02/24/25 15:45 81 15 93 02/24/25 15:33 78 13 94 02/24/25 15:21 78 21 95 02/24/25 15:19 99/69 L 02/24/25 15:19 99/69 L 02/24/25 14:42 88 12 100 02/24/25 14:33 123/66 02/24/25 14:33 123/66 02/24/25 14:12 75 17 96 02/24/25 14:08 90 02/24/25 13:59 37.3 C 78 18 178/73 H 96 Room Air 02/24/25 13:57 96 Laboratory Results As above in the HPI. Diagnostic Findings As above in the HPI. Medications Administered As above in the HPI. Code Status & VTE Plan VTE Prophylaxis Plan VTE Prophylaxis will be ordered: Yes PG Care Time/CCT Total # of Minutes Spent Total Time Spent with Patient: Total time spent is greater than 50% in coordination of care (as documented) at patient's floor/unit and/or counseling patient: Coding Level of Care Code 67199 INT INP/OBS CARE 2/55MIN Diagnoses Back pain M54.9 Normocytic normochromic anemia D64.9 Pruritus L29.9 Leg edema R60.0 Pericardial effusion I31.39
[2025-02-24] MEDS: HEPARIN SOD 5,000 UNIT/0.5 ML VIAL SQ SCH (22:02)
[2025-02-24 22:34] LABS: Iron 42 mcg/dl (35-150)
[2025-02-24 22:55] LABS: Ferritin 38.2 ng/ml (8-388)
[2025-02-25] MEDS: LEVOTHYROXINE SODIUM 112 MCG TABLET PO SCH (05:52)
[2025-02-25] MEDS: IBUPROFEN 200 MG TAB PO PRN (05:55)
[2025-02-25 06:52] LABS: Hematocrit (blood only) 34.7 % (37.0-47.0); Hemoglobin 11.3 g/dl (12.0-16.0); Mean Corpuscular Hemoglobin 29.9 pg (25.0-34.0); Mean Corpuscular Volume 91.8 fL (80.0-100.0); Platelet Count 203 K/uL (130-400); RDW Standard Deviation 46.3 fL (36.4-46.3); Red Blood Count 3.78 M/uL (4.20-5.40); White Blood Count 6.78 K/ul (4.8-10.8)
[2025-02-25] MEDS: LORATADINE 10 MG TAB PO SCH (08:54)
[2025-02-25] MEDS: ACETAMINOPHEN 325 MG TAB PO PRN (08:55)
[2025-02-25] MEDS: HYDROmorphone INJ 2 MG/ML SYR/VIAL IV STA (10:30)
[2025-02-25] MEDS: GADOBUTROL 65ML VIAL IV ONE (11:21)
[2025-02-25] MEDS: FUROSEMIDE 40 MG/4 ML VIAL IV ONE (11:41)
--- NOTE | 2025-02-25 12:04 | Magnetic Resonance Report ---
Clinical History: Lower back pain Technique: Sagittal and axial T1 and T2-weighted magnetic resonance images were obtained of the lumbar spine before and after the administration of intravenous gadolinium contrast. Findings: The lumbar vertebrae are in normal alignment. There are multiple apparent vertebral hemangiomas with characteristic increased T1 and increased T2 signal intensity. No other focal osseous lesion is evident. No acute fracture is identified. There is a mild old compression fracture of the T12 vertebral body with lots of up to 20% of the vertebral body height. There is multilevel Schmorl's node formation. There is no definite sign of infection. There is no sign of acute ligamentous injury. The conus medullaris appears normal, terminating at the level of L1. No definite area of abnormal enhancement is seen At L1-L2, there is a mild disc bulge, without spinal stenosis or nerve root compression. At L2-L3, there is a minimal disc bulge without spinal stenosis or nerve root compromise At L3-L4, there is a disc bulge without spinal stenosis. There is mild right neural foramen narrowing At L4-L5, there is a disc bulge without spinal stenosis. There is right greater than left neural foramen narrowing that may affect the right L4 nerve root. At L5-S1, there is a disc bulge without spinal stenosis. There is bilateral neural foramen narrowing that may affect the exiting L5 nerve roots. Impression: 1. No sign of acute fracture or ligamentous injury 2. Mild old T12 compression fracture 3. Lumbar disc bulges without spinal stenosis 4. Right L4-5 and bilateral L5-S1 neural foramen narrowing, which may affect the exiting nerve roots Electronically signed by Soto Ortega 02-25-2025 12:03 PM
--- NOTE | 2025-02-25 12:17 | XCELERA ---
[id number] \\[id number]
[2025-02-25] MEDS: HYDROmorphone INJ 2 MG/ML SYR/VIAL IV PRN (13:05)
[2025-02-25] MEDS ORDERED: HYDROCORTISONE 1% OINT 30 GM TUBE EXT PRN (14:41)
--- NOTE | 2025-02-25 14:49 | Hospitalist Progress Note ---
Date of Service February 25, 2025 Assessment & Plan (1) Back pain: Plan: To address #1, patient underwent MRI lumbar spine with/without IV contrast (02/25/2025), which was negative for acute fracture, herniated nucleus pulposi, or spinal stenosis. In the interim, I have ordered tylenol 650mg PO q6 prn pain 1-3, headache, temp > 100.4 degrees Fahrenheit, dilaudid 2mg IV x 2 doses (02/24/2025, 7:17pm; 02/25/2025, 10:30am), followed by dilaudid 2mg IV q2h prn pain 7-10. Patient underwent PT/OT Service evaluations in the 02/25/2025 am and was [facility] [address] [place] [address], [place] [address]. Patient subsequently reported that she still has severe lumbago, rated up to 9 (out of 10 point intensity scale), and hence, patient remains in [facility] on 02/25/2025, and will undergo re- evaluation by PT/OT Services in the 02/26/2025 am. (2) Normocytic normochromic anemia: Plan: To address #2, patient underwent repeat Hb testing in the 02/25/2025 am. cf., Hb 11.6 g/dL, MCV 90.5, MCHC 32.8 (02/24/2025, 2:00pm). cf., Hb 11.3 g/dL, MCV 91.8, MCHC 32.6 (02/25/2025, 5:53am). Patient reports no mucosal bleeding and remains hemodynamically stable. I will check repeat Hb level in the 02/26/2025 am, and I will reserve packed RBC transfusion for Hb level less than 7 g/dL in this patient who reports no mucosal bleeding and who remains hemodynamically stable. In the interim, I ordered Fe, TIBC, and ferritin levels to see if patient suffers from iron deficiency anemia, thalassemia, anemia of chronic disease (e.g., hypothyroidism), or sideroblastic anemia. Subsequently, iron studies revealed normal Fe 42 ug/dL, normal TIBC 255 ug/dL, and normal ferritin 38.2 ng/mL (02/24/2025, 5:32pm); this iron studies profile is most consistent with thalassemia trait and correlates with patient's Mediterranean background/ethnicity. (3) Pruritus: Plan: To address #3, patient is being started on hydrocortisone 1% cream applied topically to the right forearm qid prn pruritus (02/25/2025, 2:41pm). (4) Leg edema: Plan: To address #4, patient underwent TTE (02/24/2025, 7:26am) as patient has already ruled out for acute DVT of the lower extremities given normal D-dimer 330 ug/L (02/24/2025, 2:00pm). cf., TTE (02/25/2025, 7:26am): 1. LVEF 60-65%. LV wall motion normal. 2. RV grossly normal in size. RV systolic function normal. 3. Borderline LA enlargement. RA size normal. 4. No . Trace AR. 5. PV not well visualized. Trace AK. 6. No MS. Mild MR. 7. TV not well visualized. No TR. 8. Aortic root normal size. Ascending aorta normal dimension. Normal IVC and collapsibility with sniff indicates normal RAP 3 mm Hg. 9. No pericardial effusion. 10.Grade I diastolic dysfunction. 11.No pericardial effusion. (as per CARDS Dr. Mynor Guadarrama). Hence, I surmise that patient suffers from chronic venous stasis/venous insufficiency, and which leads to chronic 3+ pitting pedal edema with extension to the mid-shins bilaterally, but sparing the upper shins bilaterally, knees, hips, and thighs. (5) Pericardial effusion: Plan: To address #5, patient underwent TTE (02/25/2025, 7:26am). cf., TTE (02/25/2025, 7:26am): 1. LVEF 60-65%. LV wall motion normal. 2. RV grossly normal in size. RV systolic function normal. 3. Borderline LA enlargement. RA size normal. 4. No . Trace AR. 5. PV not well visualized. Trace AK. 6. No MS. Mild MR. 7. TV not well visualized. No TR. 8. Aortic root normal size. Ascending aorta normal dimension. Normal IVC and collapsibility with sniff indicates normal RAP 3 mm Hg. 9. No pericardial effusion. 10.Grade I diastolic dysfunction. 11.No pericardial effusion. (as per CARDS Dr. Mynor Guadarrama). Hence, the report of "small pericardial effusion" (as reported on 02/24/2025, 2:02pm CTA chest) was most likely an overread. Of final note, my clinical suspicion for acute CHF remains low as patient has no stigmata (e.g., pulse pressure narrowing, JVD, bibasilar crackles) on exam to suggest acute CHF. Hene, the report of "grade I diastolic dysfunction" (as reported on 02/25/2025, 7:26am TTE, CARDS Dr. Mynor Guadarrama) most likely represents chronic diastolic dysfunction, and which is most likely caused directly by patient's obesity with BMI 38.8 (height 170.2 cm; weight 112.4 kg). Of note, patient is not old and does not suffer from HTN, which are two common causes of chronic diastolic dysfunction. Admission and Anticipated Discharge Date Admission Date: February 24, 2025 Review of Systems Constitutional: Positive for lower back pain radiating down right leg and to the right foot, sparing the right toes #1 through #5. Negative for antecedent/coincident fevers, chills, diaphoresis, cough, wheeze, sore throat, hemoptysis, chest pains, palpitations, pleurisy, nausea, vomiting, diarrhea, abdominal pain, pelvic pain, hematemesis, hematochezia, melena, hematuria, dysuria, frequency, urgency, headaches, dizziness, lightheadedness, visual changes, hearing changes, weakness, falls, syncope, trauma, travel history, sick contacts, or food/drug ingestions novel or new. All other review of systems are reported as negative by the patient on 02/25/2025. Physical Exam Constitutional: General: Comfortable, coherent, and cooperative. Not confused, obtunded, or lethargic. Patient speaks with regular debora, and in complete, fluent, and articulate 7-9 word sentences without pause, interruption, cough, or wheeze with admission O2 sat 97% on room air (02/25/2025 10:37am). HEENT: Normocephalic, atraumatic. No nystagmus, gaze paresis, anisocoria, miosis, mydriasis, hyphema, scleral injection, conjunctivitis, or pterygium. No otorrhea or rhinorrhea. No pharyngeal erythema, edema, or discharge. Neck: Supple, no stridor, bruit, goiter, or hepato-jugular reflux. Jugular venous pressure is estimated to be 3 cm above the sternal angle of Stanislav, which in turn, is 5 cm above the level of the right atrium; with jugular venous pressure estimated to be 8 cm, then, there is no jugular venous d istention on 02/25/2025. Lymphatics: No cervical (anterior/posterior), supraclavicular, infraclavicular, axillary, epitrochlear, or inguinal adenopathy. Chest: Symmetric rise and fall with respirations. Non-tender to palpation. Lungs: Clear to auscultation and percussion. No audible expiratory wheeze, egophony, pectoriloquy, increase in tactile fremitus, or flatness/dullness to percussion at the bases. Heart: Regular rate and rhythm. S1 and S2 noted. No S3 or S4 summation gallop. No tripartite friction rub. Grade II/ early systolic murmur @ LLSB without radiation to the carotids, axilla, or back, and which remains invariant in regards to the respiratory cycle. Abdomen: Soft, non-tender, non-distended. No rebound, guarding, Rivas's sign, or organomegaly. Bowel sounds auscultated in all 4 quadrants. Extremities: No clubbing, cyanosis. 3+ pitting pedal edema with extension to the mid-shins bilaterally, but sparing the upper shins bilaterally, knees, hips, and thighs. Back: Non-tender spine, non-tender paraspinal exam (cervical, thoracic, lumbar), with straight leg raising positive for the RLE and straight leg raising negative for the LLE. In addition, there were no ecchymoses or hematoma(s) on the back, and no erythema, edema, induration, warmth, crepitus, fluctuance, discharge (sanguineous, serous, suppurative), ulceration, malodor, or lymphangitic streaking anywhere on the back or body. Skin: No decubitus ulcer or enanthem or exanthem. Neuro: Awake and oriented in regards to person, place, time, and situation. DTR+. 5/5 motor strength in all 4 extremities, both proximally and distally. No myoclonus or tics or tremors. Genito-urinary: No urethral discharge. No wells catheter. Results & Data Results & Data Vital Signs (Past 12 Hours) Vital Signs Temp Pulse Resp BP Pulse Ox O2 Del Method 02/25/25 10:37 36.8 C 78 20 117/71 97 Room Air 02/25/25 07:25 Room Air Laboratory Results WBC 8.07, N60 L28 M7 E3 B1, Hb 11.6, MCV 90.5, MCHC 32.8, platelet 221 (02/24/2025, 2:00pm). INR 0.9 (02/24/2025, 2:00pm). Na 138, K 4.0, BUN 17, creatinine 1.11, glucose 117, Ca 9.1, Mg 2.2, AST 19, ALT 16, ALK PHOS 50, TBili 0.3 (02/24/2025, 2:00pm). Troponin-I #1 < 2.3 pg/mL (02/24/2025, 2:00pm). BNP 48 pg/mL (02/24/2025, 2:00pm). TSH 12.215 uIU/mL (02/24/2025, 2:00pm). Free T4 0.78 ng/dL (02/24/2025, 2:00pm). Free T3 2.85 pg/mL (02/24/2025, 2:00pm). U/A: LE-, nitrite- (02/24/2025, 2:00pm). D-dimer 330 ug/L (02/24/2025, 2:00pm). Diagnostic Findings Portable CXR (02/24/2025, 1:57pm): 1. No infiltrate, effusion, cardiomegaly, pulmonary vascular congestion, or pneumothorax (by my review). CT abd/pelvis with IV contrast (02/24/2025, 2:02pm): 1. No acute findings in abdomen or pelvis. CTA chest (02/24/2025, 2:02pm): 1. No evidence for pulmonary embolism. 2. There is a small pericardial effusion and a trace right pleural effusion. CT brain without contrast (02/24/2025, 2:02pm): 1. No acute bleed, mass, or midline shift. EKG (02/24/2025, 2:03pm): NSR @ 76, AK 166, QTC 461, no acute ST depressions/elevations, TWI, or q waves (by my review). TTE (02/25/2025, 7:26am): 1. LVEF 60-65%. LV wall motion normal. 2. RV grossly normal in size. RV systolic function normal. 3. Borderline LA enlargement. RA size normal. 4. No . Trace AR. 5. PV not well visualized. Trace AK. 6. No MS. Mild MR. 7. TV not well visualized. No TR. 8. Aortic root normal size. Ascending aorta normal dimension. Normal IVC and collapsibility with sniff indicates normal RAP 3 mm Hg. 9. No pericardial effusion. 10.Grade I diastolic dysfunction. 11.No pericardial effusion. (as per CARDS Dr. Mynor Guadarrama). MRI lumbar spine with/without contrast (02/25/2025): 1. No sign of acute fracture or ligamentous injury. 2. Mild old T12 compression fracture. 3. Lumbar disc bulges without spinal stenosis. 4. Right L4-5 and bilateral L5-S1 neural foramen narrowing, which may affect the exiting nerve roots. PG Care Time/CCT Total # of Minutes Spent Total Time Spent with Patient: Total time spent is greater than 50% in coordination of care (as documented) at patient's floor/unit and/or counseling patient: Coding Level of Care Code 03275 SUB INP/OBS CARE 2/35MIN Diagnoses Back pain M54.9 Normocytic normochromic anemia D64.9 Pruritus L29.9 Leg edema R60.0 Pericardial effusion I31.39
--- NOTE | 2025-02-25 16:31 | Electrocardiogram Report ---
Test Reason : Blood Pressure : */* mmHG Vent. Rate : 76 BPM Atrial Rate : 76 BPM P-R Int : 166 ms QRS Dur : 80 ms QT Int : 410 ms P-R-T Axes : 30 21 53 degrees QTcB Int : 461 ms Normal sinus rhythm Normal ECG No previous ECGs available Confirmed by Markel Pro ([id number]) on 02/25/2025 4:31:31 PM Referred By: Confirmed By: Markel Pro
[2025-02-25] MEDS: TOPIRAMATE 25 MG TAB PO SCH (20:52)
--- NOTE | 2025-02-26 09:43 | Discharge Summary ---
Discharge Summary Date of Service February 26, 2025 Principal Dx & Hospital Course #1 = Principal Diagnosis (1) Back pain: To address #1, patient underwent MRI lumbar spine with/without IV contrast (02/25/2025), which was negative for acute fracture, herniated nucleus pulposi, or spinal stenosis. In the interim, I have ordered tylenol 650mg PO q6 prn pain 1-3, headache, temp > 100.4 degrees Fahrenheit, dilaudid 2mg IV x 2 doses (02/24/2025, 7:17pm; 02/25/2025, 10:30am), followed by dilaudid 2mg IV q2h prn pain 7-10. Patient underwent PT/OT Service evaluations in the 02/25/2025 am and was cleared for D/C back to [facility], [address] [place] [address]. Patient subsequently reported that she still has severe lumbago, rated up to 9 (out of 10 point intensity scale), and hence, patient remained in [facility] on 02/25/2025 overnight, and underwent re-evaluation by PT/OT Services in the 02/26/2025 am, and was subsequently cleared for D/C back to [facility], [address] [place] [address] on 02/26/2025 am. (2) Normocytic normochromic anemia: To address #2, patient underwent repeat Hb testing in the 02/25/2025 am. cf., Hb 11.6 g/dL, MCV 90.5, MCHC 32.8 (02/24/2025, 2:00pm). cf., Hb 11.3 g/dL, MCV 91.8, MCHC 32.6 (02/25/2025, 5:53am). Patient reports no mucosal bleeding and remains hemodynamically stable. Patient did not require or receive any packed RBC transfusions while in [facility]. Of note, I ordered Fe, TIBC, and ferritin levels to see if patient suffers from iron deficiency anemia, thalassemia, anemia of chronic disease (e.g., hypothyroidism), or sideroblastic anemia. Subsequently, iron studies revealed normal Fe 42 ug/dL, normal TIBC 255 ug/dL, and normal ferritin 38.2 ng/mL (02/24/2025, 5:32pm); this iron studies profile is most consistent with thalassemia trait and correlates with patient's Mediterranean background/ethnicity. (3) Pruritus: To address #3, patient received hydrocortisone 1% cream applied topically to the right forearm qid prn pruritus (02/25/2025, 2:41pm) and subsequently reported relief after receiving this medication. Subsequently, patient was discharged back to [facility], [address] [place] [address] on 02/26/2025 am, with an electronic prescription for hydrocortisone 1% cream applied topically to the right forearm qid prn pruritus, #30 gram tube, #1 tube, no refills, transmitted to [facility], [address] [place] [address], [place] [address], on 02/26/2025, prior to hospital discharge back to [facility], [address] [place] [address] on 02/26/2025 am. (4) Leg edema: To address #4, patient underwent TTE (02/24/2025, 7:26am) as patient had already ruled out for acute DVT of the lower extremities given normal D-dimer 330 ug/L (02/24/2025, 2:00pm). cf., TTE (02/25/2025, 7:26am): 1. LVEF 60-65%. LV wall motion normal. 2. RV grossly normal in size. RV systolic function normal. 3. Borderline LA enlargement. RA size normal. 4. No . Trace AR. 5. PV not well visualized. Trace WV. 6. No MS. Mild MR. 7. TV not well visualized. No TR. 8. Aortic root normal size. Ascending aorta normal dimension. Normal IVC and collapsibility with sniff indicates normal RAP 3 mm Hg. 9. No pericardial effusion. 10.Grade I diastolic dysfunction. 11.No pericardial effusion. (as per CARDS Dr. Mynor Guadarrama). Hence, I surmise that patient suffers from chronic venous stasis/venous insufficiency, and which leads to chronic 3+ pitting pedal edema with extension to the mid-shins bilaterally, but sparing the upper shins bilaterally, knees, hips, and thighs. (5) Pericardial effusion: To address #5, patient underwent TTE (02/25/2025, 7:26am). cf., TTE (02/25/2025, 7:26am): 1. LVEF 60-65%. LV wall motion normal. 2. RV grossly normal in size. RV systolic function normal. 3. Borderline LA enlargement. RA size normal. 4. No . Trace AR. 5. PV not well visualized. Trace WV. 6. No MS. Mild MR. 7. TV not well visualized. No TR. 8. Aortic root normal size. Ascending aorta normal dimension. Normal IVC and collapsibility with sniff indicates normal RAP 3 mm Hg. 9. No pericardial effusion. 10.Grade I diastolic dysfunction. 11.No pericardial effusion. (as per CARDS Dr. Mynor Guadarrama). Hence, the report of "small pericardial effusion" (as reported on 02/24/2025, 2:02pm CTA chest) was most likely an overread. Of final note, my clinical suspicion for acute CHF remains low as patient has no stigmata (e.g., pulse pressure narrowing, JVD, bibasilar crackles) on exam to suggest acute CHF. Hene, the report of "grade I diastolic dysfunction" (as reported on 02/25/2025, 7:26am TTE, CARDS Dr. Mynor Guadarrama) most likely represents chronic diastolic dysfunction, and which is most likely caused directly by patient's obesity with BMI 38.8 (height 170.2 cm; weight 112.4 kg). Of note, patient is not old and does not suffer from HTN, which are two common causes of chronic diastolic dysfunction. Admission HPI Per Admitting Provider 45 years old female with PMH of FULL CODE @ home alone, obesity with BMI 38.8 (height 170.18 cm; weight 112.4 kg), hyperlipidemia on atorvastatin 20mg PO qhs, allergic rhinitis on loratadine 10mg PO daily, hypothyroidism on synthroid 224ug PO daily, non-diabetic peripheral neuropathy of the bilateral feet on gabapentin 300mg PO tid, and a raft of mental health issues including: former nicotine dependence/tobacco abuse, no subsequent development of COPD, not on home O2 or home steroids, instead, patient currently vapes, but not on a daily basis, and with the last vaping session having occurred 3 weeks ago, former opiate abuse now on subutex 2mg SL bid, bipolar disorder on lurasidone 40mg PO qpm, topamax 25mg PO bid, major depression on doxepin 100mg PO qhs and fluoxetine 10mg PO daily, anxiety disorder on buspirone 15mg PO tid and hydroxyzine 50mg PO tid prn anxiety, insomnia disorder on trazodone 100mg PO qhs, attention deficit disorder on guanfacine 0.5mg PO bid, chronic pain disorder with muscle spasms in the back on cyclobenzaprine 5mg PO tid prn back spasms, who reports: "My lower back hurts. It goes down my right leg down to my right foot. I did not fall down or twist my back. I didn't bump into anything or anyone. I didn't pass out. My lower back and right leg and whole body, actually, feels like it's on fire and freezing, sharp and cool, then numb, not tingly, everywhere, everything, all at once. The back pain started this afternoon at home (02/24/2025, 1:00pm). Get this too: my right forearm has had this itchy rash for the past 1 month, and so I scratch and I scratch, and I scratch some more, and it doesn't stop itching. My left arm is fine, completely fine. Then, for the past 2 nights, I have been sweating and my bedsheets have been soaked with sweat when I wake up in the morning. Then, today, I noted that my legs are balloons, see, I can press into my legs and my entire knuckle fits inside the dimple I make when I press my fingers into my legs. My breathing is fine. No problem there at all. It's my lower back. You think I have some herniated disks, doc?" Patient denies antecedent/coincident fevers, chills, cough, wheeze, sore throat, hemoptysis, shortness of breath, dyspnea on exertion, chest pains, palpitations, pleurisy, nausea, vomiting, diarrhea, abdominal pain, pelvic pain, hematemesis, hematochezia, melena, hematuria, dysuria, frequency, urgency, headaches, dizziness, lightheadedness, visual changes, hearing changes, weakness, falls, syncope, trauma, travel history, sick contacts, or food/drug ingestions novel or new. All other review of systems are reported as negative by the patient on observation date 02/24/2025. In [facility] ER bed #B10, patient was afebrile @ 37.3 degrees Celsius, HR 78, RR 18, O2 sat 96% on room air, and BP 178/73 (02/24/2025 1:59pm). Exam was noted for a non-tender spine, non-tender paraspinal exam (cervical, thoracic, lumbar), with straight leg raising positive for the RLE and straight leg raising negative for the LLE. In addition, there were no ecchymoses or hematoma(s) on the back, and no erythema, edema, induration, warmth, crepitus, fluctuance, discharge (sanguineous, serous, suppurative), ulceration, malodor, or lymphangitic streaking anywhere on the back or body. Patient did manifest with 3+ pitting pedal edema with extension to the mid-shins bilaterally, but sparing the upper shins bilaterally, knees, hips, and thighs. Abdomen was protuberant by virtue of patient's obesity with BMI 38.8 (height 170.18 cm; weight 112.4 kg), but non-distended and non-tender, with no fluid wave on auscultation/percussion of the abdomen from one side to the other side of the abdomen. Labs in [facility] ER bed #B10 were noted for: WBC 8.07, N60 L28 M7 E3 B1, Hb 11.6, MCV 90.5, MCHC 32.8, platelet 221 (02/24/2025, 2:00pm). INR 0.9 (02/24/2025, 2:00pm). Na 138, K 4.0, BUN 17, creatinine 1.11, glucose 117, Ca 9.1, Mg 2.2, AST 19, ALT 16, ALK PHOS 50, TBili 0.3 (02/24/2025, 2:00pm). Troponin-I #1 < 2.3 pg/mL (02/24/2025, 2:00pm). BNP 48 pg/mL (02/24/2025, 2:00pm). TSH 12.215 uIU/mL (02/24/2025, 2:00pm). Free T4 0.78 ng/dL (02/24/2025, 2:00pm). Free T3 2.85 pg/mL (02/24/2025, 2:00pm). U/A: LE-, nitrite- (02/24/2025, 2:00pm). D-dimer 330 ug/L (02/24/2025, 2:00pm). Additional testing in [facility] ER bed #B10 included: Portable CXR (02/24/2025, 1:57pm): 1. No infiltrate, effusion, cardiomegaly, pulmonary vascular congestion, or pneumothorax (by my review). CT abd/pelvis with IV contrast (02/24/2025, 2:02pm): 1. No acute findings in abdomen or pelvis. CTA chest (02/24/2025, 2:02pm): 1. No evidence for pulmonary embolism. 2. There is a small pericardial effusion and a trace right pleural effusion. CT brain without contrast (02/24/2025, 2:02pm): 1. No acute bleed, mass, or midline shift. EKG (02/24/2025, 2:03pm): NSR @ 76, WV 166, QTC 461, no acute ST depressions/elevations, TWI, or q waves (by my review). Patient was subsequently placed in OBSERVATION on the hospitalist service @ [facility] on 02/24/2025 with the following diagnoses: 1. Acute lower back pain of unclear etiology, R/O herniated nucleus pulposus, R/O acute vertebral fracture. 2. Acute normocytic, normochromic anemia with initial Hb 11.6 g/dL, MCV 90.5, MCHC 32.8 (02/24/2025, 2:00pm), of unclear etiology. 3. Acute onset of pruritic right forearm for the past 1 month and acute onset of night sweats for the past 2 nights, of unclear etiology. 4. Acute onset of bilateral lower extremity edema, of unclear etiology. 5. Incidental finding of "small pericardial effusion and a trace right pleural effusion" (as noted on 02/24/2025, 2:02pm CTA chest), of unclear etiology. To address #1, patient awaits MRI lumbar spine with/without IV contrast (02/24/2025, 7:05pm). In the interim, I have ordered tylenol 650mg PO q6 prn pain 1-3, headache, temp > 100.4 degrees Fahrenheit, dilaudid 2mg IV x 1 dose now (02/24/2025, 7:05pm), PT/OT Service evaluations in the 02/25/2025 am. To address #2, patient awaits repeat Hb testing in the 02/25/2025 am. I will reserve packed RBC transfusion for Hb level less than 7 g/dL in this patient who reports no mucosal bleeding and who remains hemodynamically stable. In the interim, I have ordered Fe, TIBC, and ferritin levels to see if patient suffers from iron deficiency anemia, thalassemia, anemia of chronic disease (e.g., hypothyroidism), or sideroblastic anemia. To address #3, patient has been started on hydrocortisone 1% cream applied topically to the right forearm qid prn pruritus. To address #4, patient awaits TTE (02/24/2025, 5:07pm) as patient has already ruled out for acute DVT of the lower extremities given normal D-dimer 330 ug/L (02/24/2025, 2:00pm). To address #5, patient awaits TTE (02/24/2025, 5:07pm). Of note, my clinical suspicion for acute CHF remains low as patient has no stigmata (e.g., pulse pressure narrowing, JVD, bibasilar crackles) on exam to suggest acute CHF. Discharge Exam Constitutional General: Comfortable, coherent, and cooperative. Not confused, obtunded, or lethargic. Patient speaks with regular debora, and in complete, fluent, and articulate 7-9 word sentences without pause, interruption, cough, or wheeze with admission O2 sat 97% on room air (02/25/2025 10:37am) and discharge O2 sat 94% on room air (02/26/2025, 7:17am). HEENT: Normocephalic, atraumatic. No nystagmus, gaze paresis, anisocoria, miosis, mydriasis, hyphema, scleral injection, conjunctivitis, or pterygium. No otorrhea or rhinorrhea. No pharyngeal erythema, edema, or discharge. Neck: Supple, no stridor, bruit, goiter, or hepato-jugular reflux. Jugular venous pressure is estimated to be 3 cm above the sternal angle of Stanislav, which in turn, is 5 cm above the level of the right atrium; with jugular venous pressure estimated to be 8 cm, then, there is no jugular venous distention on 02/26/2025. Lymphatics: No cervical (anterior/posterior), supraclavicular, infraclavicular, axillary, epitrochlear, or inguinal adenopathy. Chest: Symmetric rise and fall with respirations. Non-tender to palpation. Lungs: Clear to auscultation and percussion. No audible expiratory wheeze, egophony, pectoriloquy, increase in tactile fremitus, or flatness/dullness to percussion at the bases. Heart: Regular rate and rhythm. S1 and S2 noted. No S3 or S4 summation gallop. No tripartite friction rub. Grade II/ early systolic murmur @ LLSB without radiation to the carotids, axilla, or back, and which remains invariant in regards to the respiratory cycle. Abdomen: Soft, non-tender, non-distended. No rebound, guarding, Rivas's sign, or organomegaly. Bowel sounds auscultated in all 4 quadrants. Extremities: No clubbing, cyanosis. 3+ pitting pedal edema with extension to the mid-shins bilaterally, but sparing the upper shins bilaterally, knees, hips, and thighs. Back: Non-tender spine, non-tender paraspinal exam (cervical, thoracic, lumbar), with straight leg raising positive for the RLE and straight leg raising negative for the LLE. In addition, there were no ecchymoses or hematoma(s) on the back, and no erythema, edema, induration, warmth, crepitus, fluctuance, discharge (sanguineous, serous, suppurative), ulceration, malodor, or lymphangitic streaking anywhere on the back or body. Skin: No decubitus ulcer or enanthem or exanthem. Neuro: Awake and oriented in regards to person, place, time, and situation. DTR+. 5/5 motor strength in all 4 extremities, both proximally and distally. No myoclonus or tics or tremors. Genito-urinary: No urethral discharge. No wells catheter. Discharge Plan Discharge Items Patient Disposition: Transfer [facility] Reason For Visit: BACK PAIN Discharge Diagnosis: 1. Chronic lumbago. 2. Normocytic, normochromic anemia. 3. Pruritus on right forearm. 4. Chronic diaastolic CHF with preserved LVEF 60-65%, grade I LV diastolic dysfunction (as noted on 02/24/2025, 7:26am TTE, CARDS Dr. Mynor Guadarrama). Condition on Discharge: Fair Activity: Resume your previous activity Lifting: Gradually increase as tolerated Bathing: No limitations Sexual Activity: When tolerated Exercise/Sports: As tolerated Driving/Machine Use: No limitations Weightbearing: Full weightbearing Non-emergency contact: Primary Care Provider Call non-emergency contact if: you have any medication questions Follow-up/Referrals: Tanya Smith [Primary Care Provider] - Diet: Heart Healthy Addtl Attending Provider Instructions: See your PCP within 5-7 days of hospital discharge from [facility]. Pending Studies at Discharge: No Stand-Alone Forms: My [facility] Medications and DC Order Prescriptions: New hydrocortisone 1 % Ointment 1 applic EXT QID PRN (Reason: itching) Qty: 30 0RF Continued atorvastatin 20 mg Tablet 20 mg PO HS buspirone 15 mg Tablet 15 mg PO TID doxepin 100 mg Capsule 100 mg PO HS fluoxetine 10 mg Capsule 10 mg PO DAILY docusate sodium 100 mg Capsule 100 mg PO DAILY gabapentin 300 mg Capsule 300 mg PO TID levothyroxine 112 mcg Tablet 224 mcg PO DAILYBB Rx Instructions: GIVE AT 0600 buprenorphine HCl 2 mg Tablet, Sublingual 2 mg SUBLINGUAL BID cholecalciferol (vitamin D3) [Vitamin D3] 25 mcg (1,000 unit) Tablet 50 mcg PO QDB topiramate [Topamax] 25 mg Tablet 25 mg PO BID hydroxyzine HCl 50 mg Tablet 50 mg PO TID PRN (Reason: Anxiety) trazodone 100 mg Tablet 100 mg PO HS guanfacine 1 mg Tablet 0.5 mg PO BID Rx Instructions: 1/2 OF A 1 MG TABLET HOLD FOR BP <99/55 OR HR <60 nicotine 21 mg/24 hr Patch 24 Hour 1 patch TRANSDERMAL DAILY PRN (Reason: Smoking Cessation) ibuprofen 600 mg Tablet 600 mg PO Q6H PRN (Reason: Inflammation) ondansetron 4 mg Tablet,Disintegrating 4 mg PO TID PRN (Reason: Nausea) loratadine 10 mg Tablet 10 mg PO DAILY cyclobenzaprine 5 mg Tablet 5 mg PO TID PRN (Reason: BACK SPASMS) triamcinolone acetonide-l.s.b. 0.1 % Cream 1 applic TOPICAL TID PRN (Reason: ECZEMA) lurasidone 40 mg Tablet 40 mg PO QPM Rx Instructions: must administer with food (at least 350 calories) GIVE AT 1700 lidocaine HCl 4 % Adhesive Patch,Medicated 1 patch topical DAILY MDD 3 PATCHES PER APPLICATION Rx Instructions: TRANSDERMALLY ONCE A DAY FOR LUMBAGO acetaminophen [Tylenol] 325 mg Tablet 650 mg PO Q6 MDD 4 PRN (Reason: Pain) calcium carbonate 500 mg calcium (1,250 mg) Tablet,Chewable 500 mg PO BID PRN (Reason: REFLUX) Discharge Orders: Discharge Order (Routine); Ordered 02/26/25 Ordered By: Donis Mehta Discharge Order- [facility] (Routine); Ordered 02/26/25 Ordered By: Donis Mehta Admission Data Admit Date/Time: 02/24/25 17:04 Attending Provider: Donis Mehta Admit Provider: Donis Mehta Primary Care Provider: Tanya Smith Other Providers: Donis Mehta Hospital Stay Data Consultations 02/24/25 16:27 ED Decision to Admit Stat Diagnostic Imagining Performed 02/24/25 14:02 CT abd pelvis IV con only Stat CT angio chest PE protocol Stat CT head/brain wo con Stat 02/25/25 19:05 MR lumbar spine wo/w con Stat Pending Results Patient Have Any Pending Studies at Discharge: No Discharge Instructions Given to Patient (Per Discharging Provider) See your PCP within 5-7 days of hospital discharge from [facility]. Total Time Total Time Spent Total Time Spent (In Minutes): 35 minutes. Of this time period, 19 minutes were spent in coordinating patient's discharge. Coding Level of Care Code 31581 INP/OBS DISCH >30 MIN Diagnoses Back pain M54.9 Normocytic normochromic anemia D64.9 Pruritus L29.9 Leg edema R60.0 Pericardial effusion I31.39
[2025-02-26] MEDS: LORazepam 0.5 MG TAB PO STA (19:29)
[2025-02-26] MEDS: OPTIRAY 320 100ml IV ONE (19:42)
--- NOTE | 2025-02-26 20:02 | CT Scan Report ---
CT head without and with contrast History: Visual changes Comparison: 02/24/2025 Technique: Using multidetector thin collimation helical acquisition technique, axial, coronal and sagittal CT images from the skull base to the vertex were obtained without intravenous contrast. Dose reduction techniques were achieved by using automatic exposure control and/or adjustment of mA and/or kV according to patient size and/or use of iterative reconstruction technique. Findings: No intracranial hemorrhage, mass-effect, or midline shift. The ventricles are proportionate to the cerebral sulci. The robles to white matter differentiation of the cerebral hemispheres is preserved. The basal cisterns are patent. No visualized mass or abnormal enhancement. The visualized paranasal sinuses are clear. Mastoid air cells are clear. Impression: No acute intracranial pathology. No abnormal enhancement. Electronically signed by Casey Kelsey 02-26-2025 8:01 PM
--- NOTE | 2025-02-27 11:41 | Psychiatric Consultation ---
Date of Consultation February 27, 2025 Impression / Recommendations Impression Diagnostically consistent with unspecified psychosis with differential including bipolar affective disorder current depressive episode with some mild psychotic features vs borderline personality disorder with psychosis features vs trauma- related. Currently no evidence for a primary psychotic disorder as despite report of ideas of reference and chronic paranoia that her phone has been hacked she is not responding to any internal stimuli, has no evidence of thought blocking, shows well organized thought process and behaviors and visual hallucinations are inconsistent with symptom profile that would be expected. Rather suspect current symptoms of ideas of reference and chronic paranoia are likely related to history of trauma and possible borderline personality disorder (she reports this has been suspected in the past and describes history of multiple suicide attempts and more chronic intermittent SI). Given this discussed importance of IOP that focuses on DBT which she is willing to do once back in [place] and re-established with local providers. Reviewed option to increase Latuda to further address ideas of reference and for further treatment for depression in context of bipolar disorder (though this diagnosis remains unclear given history of substance use and no evidence for clear prior manic episodes and significant overlap with borderline personality disorder). Also reasonable to titrate Topamax to help off potential antipsychotic-induced weight gain and for alcohol use, she understands these are both off-label FDA uses. At this point her acute risk of self-harm is low given denial of SI, very future-oriented, organized thought process and motivated and no hopelessness. However, she is interested in attempting to return to the [facility] for further medication titration/monitoring/optimization. If they are willing to have her back, this seems reasonable to me. If they decline her again, then reasonable to work on outpatient planning and we'll adjust medications while she is on the medical floor awaiting disposition. Overall, I spent a total of 80 minutes with this case including review of chart records, review of labwork, review of EKG QTc, direct evaluation of the patient at bedside, counseling the patient, discussion of the patient with the hospitalist provider, discussion with the psychiatric liason during clinical rounds and documentation in the electronic health record. (1) Trauma and stressor-related disorder: (2) Substance use disorder: (3) Depression: (4) KRISTOPHER (generalized anxiety disorder): (5) Hypothyroidism: Plan 02/27/2025: -She is voluntary for the [facility] for continuation of her inpatient psychiatric treatment, if they decline her again then plan for transition to outpatient level of care -She can leave AMA if she desires, no current 302 criteria -Increase Latuda to 60mg daily with dinner if she remains here to further target depression and ideas of reference and paranoia -Increase Topamax to 50mg BID if she remains here to further target alcohol use disorder and weight-gain associated with Latuda -Continue trazodone, fluoxetine, doxepin and buspar as ordered -Encourage outpatient follow-up to include DBT IOP Psych History Identifying Data Rola Orourke is a 45 yo woman with a history of bipolar affective disorder, KRISTOPHER, depression, multiple previous suicide attempts, opioid use disorder on maintenance treatment, alcohol use disorder, chronic pain, hypothyroidism, HLD admitted medically for back pain and lower extremity edema from the [facility] where she was receiving voluntary inpatient psychiatric treatment for depression and psychosis. Psychiatry consulted to evaluate for appropriate level of care vs dispositon. Chief Complaint "I have no clue why [facility] wouldn't take me back". History of Present Illness Rola is seen this morning and she reports feeling medically much improved and wishes to return to the [facility] for further inpatient psychiatric treatment. She denies current SI but continues to deal with depression and anxiety, especially when she thinks about all the things she needs to organize in the future (i.e. SS & disability paperwork, moving into a long-term house in [place], finding a PCP & RECONCILIATION SPECIALIST provider & psychiatrist & therapist, and considering getting back on Ozempic for weight control). Currently her main concern is some ongoing symptoms of "I'm still having paranoia" daily for which she thinks more inpatient psychiatric treatment could be helpful for further medication adjustments. identifies that she can struggle to "know what's real and what's not" and provides example of seeing conversations on TV and thinking they directly pertain to "some of my past hard times in my life, like it's taking a jab at me". She denies any current auditory hallucinations except that she isn't sure if the messages she hears come from the TV vs are hallucinations, denies any command hallucinations. Sometimes sees flies in the air. She notes that Topamax was started recently and helped her a lot in the past with her mood. Clarified with her that Topamax has no FDA approved psychiatric indications but is often used off-label for alcohol use and weight loss/prevention of antipsychotic-induced weight gain and she agrees that previous she was on it for her alcohol use and found it helpful. She'd like to try a higher dose if possible. She's been on Latuda for awhile but is willing for a dose titration. No current access to guns. Hopeful that she can live in a sober living home in [place] to help with her continued avoidance of alcohol use. Allergies Allergy/AdvReac Type Severity Reaction Status Date / Time cefaclor [From [facility]] Allergy Hives Verified 02/24/25 17:40 azithromycin AdvReac Vomiting Verified 02/24/25 18:08 Home Medications Medication Instructions Recorded Confirmed Type acetaminophen 325 mg tablet 650 mg PO Q6 PRN Pain 02/24/25 02/24/25 History (Tylenol) atorvastatin 20 mg tablet 20 mg PO HS 02/24/25 02/24/25 History buprenorphine HCl 2 mg sublingual 2 mg sublingual BID 02/24/25 02/24/25 History tablet buspirone 15 mg tablet 15 mg PO TID 02/24/25 02/24/25 History calcium carbonate 500 mg PO BID PRN REFLUX 02/24/25 02/24/25 History cholecalciferol (vitamin D3) 25 50 mcg PO QDB 02/24/25 02/24/25 History mcg (1,000 unit) tablet (Vitamin D3) docusate sodium 100 mg capsule 100 mg PO DAILY 02/24/25 02/24/25 History doxepin 100 mg capsule 100 mg PO HS 02/24/25 02/24/25 History fluoxetine 10 mg capsule 10 mg PO DAILY 02/24/25 02/24/25 History gabapentin 300 mg capsule 300 mg PO TID 02/24/25 02/24/25 History guanfacine 1 mg tablet 0.5 mg PO BID 02/24/25 02/24/25 History hydroxyzine HCl 50 mg tablet 50 mg PO TID PRN Anxiety 02/24/25 02/24/25 History ibuprofen 600 mg tablet 600 mg PO Q6H PRN Inflammation 02/24/25 02/24/25 History levothyroxine 112 mcg tablet 224 mcg PO DAILYBB 02/24/25 02/24/25 History lidocaine HCl 4 % topical patch 1 patch topical DAILY 02/24/25 02/24/25 History loratadine 10 mg tablet 10 mg PO DAILY 02/24/25 02/24/25 History lurasidone 40 mg tablet 40 mg PO QPM 02/24/25 02/24/25 History nicotine 21 mg/24 hr daily 1 patch transdermal DAILY PRN 02/24/25 02/24/25 History transdermal patch Smoking Cessation ondansetron 4 mg disintegrating 4 mg PO TID PRN Nausea 02/24/25 02/24/25 History tablet topiramate 25 mg tablet (Topamax) 25 mg PO BID 02/24/25 02/24/25 History trazodone 100 mg tablet 100 mg PO HS 02/24/25 02/24/25 History triamcinolone acetonide-l.s.b. 0.1 1 applic topical TID PRN ECZEMA 02/24/25 02/24/25 History % topical cream furosemide 80 mg tablet (Lasix) 80 mg PO DAILY #30 tabs 02/26/25 Rx hydrocortisone 1 % topical ointment 1 applic EXT QID PRN itching #30 02/26/25 Rx grams tizanidine 4 mg capsule 4 mg PO Q8H #90 caps 02/26/25 Rx Patient History Medical History Bipolar disorder Depression with anxiety Hypothyroid Family History Father No problems noted. Mother No problems noted. Social History Smoking Status: Current some day smoker Tobacco Type: E-cigarettes / Vaping Second Hand Exposure: No; Do You Dip or Chew Tobacco: No; Tobacco Cessation Education Requested by Patient: No Hx Alcohol Use: No (hasn't had a drink in 6 months) Hx Substance Use: No (hasn't used in 1.5 years) Preferred Language: Ukrainian Communication Ability: Effective Manager Lab Required: No Beliefs That Will Affect Care: None Current Living Situation: Homeless Other Information That Helps Us Care for You: No Feels Safe at Home: Yes Safety Concerns: Feels Safe At This Time Assistive Devices: None Physical Exam Psychiatric: Orientation: alert, oriented x 3 and cooperative Apperance: appropriately dressed and appropriately groomed Eye Contact: good eye contact Motor Behavior: no abnormal motor movements Speech: normal rate/rhythm/volume of speech Affect: + tearful affect (briefly ) Mood: + depressed mood and + anxious mood Thought Process: goal directed thought process Thought Content: + paranoid (reports chronic concerns someone has hacked into her phone), reality based without delusions and + ideas of reference Suicidal Thoughts: denies suicidal thoughts Homicidal Thoughts: denies homicidal thoughts Hallucinations: + visual hallucinations; no auditory hallucinations (possible, doesn't appear to be responding to any internal stimu li) Cognition: recent memory grossly intact, remote memory grossly intact, attention grossly intact and language grossly intact Insight: good insight Judgment: + fair judgement Vital Signs (Past 24 Hours): Last Vital Signs Temp 36.7 C 02/27/25 07:18 Pulse 74 02/27/25 07:18 Resp 16 02/27/25 07:18 BP 117/72 02/27/25 07:18 Pulse Ox 95 02/27/25 07:18 O2 Del Method Room Air 02/27/25 07:56 Results & Data (PSY) Medications Administered Acetaminophen (Acetaminophen 325 Mg Tab) 650 mg PO Q6H PRN PRN Reason: pain/fever Stop: 03/26/25 17:02 Last Admin: 02/26/25 12:26 Dose: 650 mg Documented By: Admin: 02/25/25 23:19 Dose: 650 mg Documented By: Admin: 02/25/25 08:55 Dose: 650 mg Documented By: JAMIE Buprenorphine HCl (Buprenorphine Hcl 2 Mg Subl) 2 mg SL BID [facility] Stop: 03/26/25 20:59 Last Admin: 02/27/25 08:15 Dose: 2 mg Documented By: Admin: 02/26/25 20:03 Dose: 2 mg Documented By: Admin: 02/26/25 09:19 Dose: 2 mg Documented By: Admin: 02/25/25 21:03 Dose: 2 mg Documented By: Admin: 02/25/25 08:54 Dose: 2 mg Documented By: Admin: 02/24/25 22:02 Dose: 2 mg Documented By: LOGAN Buspirone HCl (Buspirone 15 Mg Tab) 15 mg PO TID [facility] Stop: 03/26/25 20:59 Last Admin: 02/27/25 08:04 Dose: 15 mg Documented By: Admin: 02/26/25 20:04 Dose: 15 mg Documented By: Admin: 02/26/25 14:14 Dose: 15 mg Documented By: Admin: 02/26/25 09:19 Dose: 15 mg Documented By: Admin: 02/25/25 20:53 Dose: 15 mg Documented By: Admin: 02/25/25 13:06 Dose: 15 mg Documented By: Admin: 02/25/25 08:54 Dose: 15 mg Documented By: Admin: 02/24/25 21:10 Dose: 15 mg Documented By: LOGAN Doxepin HCl (Doxepin Hcl 50 Mg Capsule) 100 mg PO HS [facility] Stop: 03/26/25 20:59 Last Admin: 02/26/25 20:03 Dose: 100 mg Documented By: Admin: 02/25/25 20:52 Dose: 100 mg Documented By: Admin: 02/24/25 21:09 Dose: 100 mg Documented By: LOGAN Fluoxetine HCl (Fluoxetine Hcl 10 Mg Cap) 10 mg PO DAILY [facility] Stop: 03/27/25 08:59 Last Admin: 02/27/25 08:04 Dose: 10 mg Documented By: Admin: 02/26/25 09:19 Dose: 10 mg Documented By: Admin: 02/25/25 08:54 Dose: 10 mg Documented By: JAMIE Heparin Sodium (Porcine) (Heparin Sod 5,000 Unit/0.5 Ml Vial) 5,000 units SQ Q12 [facility]IN Stop: 03/26/25 20:59 Last Admin: 02/27/25 08:16 Dose: 5,000 units Documented By: Admin: 02/26/25 20:04 Dose: 5,000 units Documented By: Admin: 02/26/25 09:19 Dose: 5,000 units Documented By: Admin: 02/25/25 20:54 Dose: 5,000 units Documented By: Admin: 02/25/25 08:54 Dose: 5,000 units Documented By: Admin: 02/24/25 22:02 Dose: 5,000 units Documented By: LOGAN Hydromorphone HCl (Hydromorphone Inj 2 Mg/Ml Syr/Vial) 2 mg IV Q2H PRN PRN Reason: Pain rated 7 to 10 Stop: 03/11/25 10:15 Last Admin: 02/26/25 13:21 Dose: 2 mg Documented By: Admin: 02/26/25 09:37 Dose: 2 mg Documented By: Admin: 02/26/25 05:46 Dose: 2 mg Documented By: Admin: 02/26/25 02:52 Dose: 2 mg Documented By: Admin: 02/25/25 23:19 Dose: 2 mg Documented By: Admin: 02/25/25 20:00 Dose: 2 mg Documented By: Admin: 02/25/25 16:40 Dose: 2 mg Documented By: Admin: 02/25/25 13:05 Dose: 2 mg Documented By: JAMIE Hydroxyzine HCl (Hydroxyzine Hcl 25 Mg Tab) 50 mg PO TID PRN PRN Reason: Anxiety Stop: 03/26/25 19:01 Last Admin: 02/26/25 17:48 Dose: 50 mg Documented By: B Admin: 02/25/25 20:51 Dose: 50 mg Documented By: MELISA Ibuprofen (Ibuprofen 200 Mg Tab) 400 mg PO Q4H PRN PRN Reason: pain rated 4 to 10 Stop: 03/26/25 17:02 Last Admin: 02/26/25 23:03 Dose: 400 mg Documented By: Admin: 02/26/25 14:16 Dose: 400 mg Documented By: Admin: 02/26/25 09:37 Dose: 400 mg Documented By: Admin: 02/26/25 02:52 Dose: 400 mg Documented By: Admin: 02/25/25 18:30 Dose: 400 mg Documented By: Admin: 02/25/25 11:50 Dose: 400 mg Documented By: Admin: 02/25/25 05:55 Dose: 400 mg Documented By: LOGAN Levothyroxine Sodium (Levothyroxine Sodium 112 Mcg Tablet) 224 mcg PO DAILYBB [facility] Stop: 03/27/25 06:29 Last Admin: 02/27/25 06:18 Dose: 224 mcg Documented By: Admin: 02/26/25 05:43 Dose: 224 mcg Documented By: Admin: 02/25/25 05:52 Dose: 224 mcg Documented By: LOGAN Loratadine (Loratadine 10 Mg Tab) 10 mg PO DAILY [facility] Stop: 03/27/25 08:59 Last Admin: 02/27/25 08:05 Dose: Not Given Documented By: Admin: 02/26/25 09:19 Dose: Not Given Documented By: Admin: 02/25/25 08:54 Dose: 10 mg Documented By: JEFFC Lurasidone HCl (Lurasidone Hcl 20 Mg Tab) 40 mg PO QPM [facility] Stop: 03/26/25 20:59 Last Admin: 02/26/25 20:03 Dose: 40 mg Documented By: Admin: 02/25/25 20:53 Dose: 40 mg Documented By: Admin: 02/24/25 21:09 Dose: 40 mg Documented By: LOGAN Tizanidine HCl (Tizanidine Hcl 4 Mg Tablet) 4 mg PO TID [facility] Stop: 03/28/25 20:59 Last Admin: 02/27/25 08:04 Dose: 4 mg Documented By: Admin: 02/26/25 20:04 Dose: 4 mg Documented By: GERTRUDE Topiramate (Topiramate 25 Mg Tab) 25 mg PO BID [facility] Stop: 03/27/25 18:44 Last Admin: 02/27/25 08:04 Dose: 25 mg Documented By: Admin: 02/26/25 20:03 Dose: 25 mg Documented By: Admin: 02/26/25 09:19 Dose: 25 mg Documented By: Admin: 02/25/25 21:04 Dose: Not Given Documented By: Admin: 02/25/25 20:52 Dose: 25 mg Documented By: MELISA Trazodone HCl (Trazodone Hcl 100 Mg Tab) 100 mg PO HS SHERIN Stop: 03/26/25 20:59 Last Admin: 02/26/25 20:03 Dose: 100 mg Documented By: Admin: 02/25/25 20:56 Dose: 100 mg Documented By: Admin: 02/24/25 21:10 Dose: 100 mg Documented By: LOGAN Coding Level of Care Code 88713 IN/OBS CONSULT LVL 5,80M Diagnoses Trauma and stressor-related disorder F43.9 Substance use disorder F19.90 Depression F32.A KRISTOPHER (generalized anxiety disorder) F41.1 Hypothyroidism E03.9
--- NOTE | 2025-02-27 12:36 | Hospitalist Progress Note ---
Date of Service February 27, 2025 Assessment & Plan (1) Back pain: (2) Normocytic normochromic anemia: (3) Pruritus: (4) Leg edema: (5) Hypothyroid: (6) Thyroiditis: Plan This is a 45 year old female with past medical history of KRISTOPHER, Depression, Substance use d/o, back pain who presented to the ED from the [facility] facility on 02/24/2025. #Back pain Lumbar spine MRI 02/25: no sign of acute fx/ligamentous injury; mild old T12 compression fx; lumbar disc bulges w/o spinal stenosis; right L4-L5 & L5-S1 neural foramen narrowing which may affect exiting nerve roots s/p Dilaudid to aide with pain control --> discontinued given patient improvemen t thus far Continue Zanaflex TID PT/OT consulted - recommending to return to prior living arrangement. #Hypothyroidism w/ hx of hypothyroidism on Levothyroxine 224mcg daily. reported ongoing feeling of neck fullness. TSH elevated at 12.215 w/ normal Free 4 & Free T3 Thyroid US obtained: heterogenous appearance of thyroid gland suggesting thyroiditis. Few thyroid nodules without suspicious characteristics. follow up US in one year for nodules. Thyroiditis likely secondary to [place] use (was on from Jul - February) On Synthroid 224mcg daily currently - increase to 250mcg daily Should follow up with an blood bank booking clerk upon discharge - patient lives in [place] currently. Will plan to check TPO antibody, ESR, and CRP w/ AM labs. #KRISTOPHER/depression/Substance abuse disorder Currently @ [facility] inpatient psychiatric facility. Concerns of unable to accept patient back being "medically complex" but from a medical standpoint, she is stable for discharge. Psych consulted - recommending increasing Latuda to 60mg once daily and Topamax 50mg twice daily Continue on Trazodone, Prozac, Buspar, Doxepin for mental health Continue Buprenorphine 2mg SL BID for hx of substance use disorder. #Anemia Mildly low hemoglobin on admission of 11.3 w/ no previous to compare. No signs of bleeding. Iron panel WNL. #Pruritus w/ pruritus on UE and reports of rash. Using Hydrocortisone 1% cream w/ continued itching. Switch to Triamcinolone TID. #LE edema with ongoing complaints of LE edema on outpatient basis secondary to chronic venous stasis/insufficiency Echo obtained 02/25: EF 60-65%. no valvular abnormalities. Grade I diastolic dysfunction. No Pericardial effusion. wear jony stockings, elevate legs. #GERD- restart Protonix as patient w/ continued complaints of indigestion. #Allergies - Continue Claritin DVT prophylaxis: Jony stockings, encourage ambulation Code: full Case discussed w/ Dr. Brewer and case management 02/27. Smith helping find assisted house in [place] for discharge purposes. Admission and Anticipated Discharge Date Admission Date: February 27, 2025 Supervising Physician Co-Signing Physician Notes Attending Attestation - Chart reviewed, care plan d/w ELIJAH Heller. I agree with the christian components of her documentation. Appreciate psych assistance. Appreciate informal assistance by endocrinology re: abnormal TSH & thyroiditis findings on thyroid u/s. Back pain stable. Dispo? Kael Boss Rola seen and examined this morning. She reports her back pain has improved. She notices LE edema when walking. States that these issues have been ongoing. States she was previously recommended to be started on a GLP-1 agonist & is asking for one on discharge. States she is not yet established with a PCP yet. States she continues to have hallucinations and wondered if it was related to her sinuses Physical Exam Constitutional: WD/WN, vitals as above Eyes: PERRL, conjunctivae normal, anicteric sclerae Respiratory: normal respiratory effort Cardiovascular: no LE edema observed Neurologic: PERRL, EOMI, accommodation nl, no face palsy, no dysarthria Psychiatric: tearful, anxious, A&OX3 Results & Data Results & Data Vital Signs (Past 12 Hours) Vital Signs Temp Pulse Resp BP Pulse Ox O2 Del Method 02/27/25 07:56 Room Air 02/27/25 07:18 36.7 C 74 16 117/72 95 Room Air PG Care Time/CCT Total # of Minutes Spent Total Time Spent with Patient: Total time spent is greater than 50% in coordination of care (as documented) at patient's floor/unit and/or counseling patient: Coding Level of Care Code 28289 SUB INP/OBS CARE 3/50MIN Diagnoses Back pain M54.9 Normocytic normochromic anemia D64.9 Pruritus L29.9 Leg edema R60.0 Hypothyroid E03.9 Thyroiditis E06.9
--- NOTE | 2025-02-27 14:45 | Ultrasound Report ---
THYROID ULTRASOUND CLINICAL HISTORY: hypothyroidism COMPARISON STUDY: None TECHNIQUE: Sonography of the thyroid gland was performed. FINDINGS: Thyroid gland is diffusely heterogeneous. Right thyroid lobe measures 3.6 x 0.9 x 0.8 cm. There are a few small subcentimeter nodules without s uspicious characteristics, largest measuring 6 mm. Left thyroid lobe measures 4.5 x 1.4 x 1.3 cm. There is a 1.8 cm benign-appearing cystic nodule lower left thyroid lobe. No other thyroid nodule seen. IMPRESSION: 1. Heterogeneous appearance of the thyroid gland suggests thyroiditis. 2. A few thyroid nodules without suspicious characteristics. Follow-up thyroid ultrasound is suggeste d in one year. ACT 112: Positive. There are findings on this exam that require communication between the performing entity and the patient following Patient Test Result Information Act ([place] Act 112) guidelines. Electronically signed by: Ramon Preciado M.D. 02/27/2025 2:43 PM
[2025-02-27] MEDS: TRIAMCINOLONE ACET 0.1% CR 80 GM TUBE EXT SCH (16:14)
[2025-02-27] MEDS: LURASIDONE HCL 20 MG TAB PO SCH (21:01)
[2025-02-27] MEDS: TOPIRAMATE 50 MG TAB PO SCH (21:23)
[2025-02-28] MEDS: LEVOTHYROXINE SODIUM 125 MCG TABLET PO SCH (05:36)
[2025-02-28 08:01] LABS: Hematocrit (blood only) 36.2 % (37.0-47.0); Hemoglobin 11.7 g/dl (12.0-16.0); Mean Corpuscular Hemoglobin 29.8 pg (25.0-34.0); Mean Corpuscular Volume 92.1 fL (80.0-100.0); Platelet Count 202 K/uL (130-400); RDW Standard Deviation 46.6 fL (36.4-46.3); Red Blood Count 3.93 M/uL (4.20-5.40); White Blood Count 6.43 K/ul (4.8-10.8)
[2025-02-28 08:21] LABS: Anion Gap 4 (3-11); Blood Urea Nitrogen 20 mg/dl (6-23); Calcium 8.6 mg/dl (8.6-10.3); Carbon Dioxide 28 mmol/L (21-32); Chloride 106 mmol/L (98-107); Creatinine Clr Calc Pharmacy 79.2 ml/min; Glucose 92 mg/dl (70-99(Fasting)); Potassium 4.6 mmol/L (3.5-5.1); Sodium 138 mmol/L (136-145)
--- NOTE | 2025-02-28 14:45 | Hospitalist Progress Note ---
Date of Service February 28, 2025 Assessment & Plan (1) Back pain: (2) Normocytic normochromic anemia: (3) Pruritus: (4) Leg edema: (5) Hypothyroid: (6) Thyroiditis: Plan This is a 45 year old female with past medical history of KRISTOPHER, Depression, Substance use d/o, back pain who presented to the ED from the [facility] on 02/24/2025. #Back pain Lumbar spine MRI 02/25: no sign of acute fx/ligamentous injury; mild old T12 compression fx; lumbar disc bulges w/o spinal stenosis; right L4-L5 & L5-S1 neural foramen narrowing which may affect exiting nerve roots s/p Dilaudid to aide with pain control --> discontinued given patient improvemen t thus far Continue Zanaflex TID, added scheduled Tylenol 1000mg q8h TID. PT/OT consulted - recommending to return to prior living arrangement. #Hypothyroidism w/ hx of hypothyroidism on Levothyroxine 224mcg daily. reported ongoing feeling of neck fullness. TSH elevated at 12.215 w/ normal Free 4 & Free T3 Thyroid US obtained: heterogenous appearance of thyroid gland suggesting thyroiditis. Few thyroid nodules without suspicious characteristics. follow up US in one year for nodules. Thyroiditis likely secondary to [place] use (was on from Jul - February) ESR/CRP WNL. TPO ab pending On Synthroid 224mcg daily currently - increase to 250mcg daily Should follow up with an nutrition associate upon discharge - patient lives in [place] currently. #KRISTOPHER/depression/Substance abuse disorder Currently @ [facility] inpatient psychiatric facility. Concerns of unable to accept patient back being "medically complex" but from a medical standpoint, she is stable for discharge. Psych consulted - recommending increasing Latuda to 60mg once daily and Topamax 50mg twice daily (02/27) Continue on Trazodone, Prozac, Buspar, Doxepin for mental health Continue Buprenorphine 2mg SL BID for hx of substance use disorder. #Anemia Mildly low hemoglobin on admission of 11.3 w/ no previous to compare. No signs of bleeding. Iron panel WNL. Hgb stable at 11.7 #Pruritus w/ pruritus on UE and reports of rash. Continue Triamcinolone TID. #LE edema with ongoing complaints of LE edema on outpatient basis secondary to chronic venous stasis/insufficiency Echo obtained 02/25: EF 60-65%. no valvular abnormalities. Grade I diastolic dysfunction. No Pericardial effusion. wear jony stockings, elevate legs. #GERD- restart Protonix as patient w/ continued complaints of indigestion. #Allergies - Continue Claritin DVT prophylaxis: Jony stockings, encourage ambulation Code: full Sarah helping find shelter house in [place] for discharge purposes. Awaiting to hear back from [facility] regarding discharge planning. Discussed w/ CM 02/28 Admission and Anticipated Discharge Date Admission Date: February 27, 2025 Subjective Rola seen and examined this morning. She states she did have some back pain overnight and into this evening. States she is very worried about not going back to inpatient psych unit & to a shelter house. SHe feels she needs a longer inpatient psych stay to help with her paranoia. Physical Exam Constitutional: WD/WN, vitals as above Eyes: PERRL, conjunctivae normal, anicteric sclerae Respiratory: normal respiratory effort Cardiovascular: no LE edema Skin: no rashes, warm and dry Neurologic: PERRL, EOMI, accommodation nl, no face palsy, no dysarthria Psychiatric: A+Ox3, euthymic affect Results & Data Results & Data Vital Signs (Past 12 Hours) Vital Signs Temp Pulse Resp BP Pulse Ox O2 Del Method 02/28/25 14:30 36.8 C 70 20 101/64 100 Room Air 02/28/25 07:33 Room Air 02/28/25 07:26 36.7 C 70 20 98/56 L 96 Room Air PG Care Time/CCT Total # of Minutes Spent Total Time Spent with Patient: Total time spent is greater than 50% in coordination of care (as documented) at patient's floor/unit and/or counseling patient: Coding Level of Care Code 60289 SUB INP/OBS CARE 2/35MIN Diagnoses Back pain M54.9 Normocytic normochromic anemia D64.9 Pruritus L29.9 Leg edema R60.0 Hypothyroid E03.9 Thyroiditis E06.9
[2025-02-28] MEDS: ACETAMINOPHEN 500 MG TAB PO SCH (15:14)
--- NOTE | 2025-03-01 09:42 | Discharge Summary ---
Discharge Summary Date of Service March 01, 2025 Principal Dx & Hospital Course #1 = Principal Diagnosis (1) Back pain: (2) Normocytic normochromic anemia: (3) Pruritus: (4) Leg edema: (5) Hypothyroid: (6) Thyroiditis: Plan This is a 45 year old female with past medical history of KRISTOPHER, Depression, Substance use d/o, back pain who presented to the ED from the [facility] on 02/24/2025. #Back pain Lumbar spine MRI 02/25: no sign of acute fx/ligamentous injury; mild old T12 compression fx; lumbar disc bulges w/o spinal stenosis; right L4-L5 & L5-S1 neural foramen narrowing which may affect exiting nerve roots s/p Dilaudid to aide with pain control --> discontinued given patient improvement. No narcotics on discharge. Continue Zanaflex TID & Tylenol 1000mg q8h TID. PT/OT consulted - recommending to return to prior living arrangement. #Hypothyroidism w/ hx of hypothyroidism on Levothyroxine 224mcg daily. reported ongoing feeling of neck fullness. TSH elevated at 12.215 w/ normal Free 4 & Free T3 Thyroid US obtained: heterogenous appearance of thyroid gland suggesting thyroiditis. Few thyroid nodules without suspicious characteristics. follow up US in one year for nodules. Thyroiditis likely secondary to [place] use (was on from Jul - February) ESR/CRP WNL. TPO ab pending Synthroid 250mcg on discharge. Should follow up with an cash applications coordinator upon discharge - patient lives in [place] currently. --> she will need to establish w/ a PCP in [place] when she returns. #KRISTOPHER/depression/Substance abuse disorder Currently @ [facility] inpatient psychiatric facility. Concerns of unable to accept patient back being "medically complex" but from a medical standpoint, she is stable for discharge. Psych consulted - recommending increasing Latuda to 60mg once daily and Topamax 50mg twice daily (02/27) - continue on dc Continue on Trazodone, Prozac, Buspar, Doxepin for mental health Continue Buprenorphine 2mg SL BID for hx of substance use disorder. Patient returned back to [facility] to wait for transportation to a fdc house in [place] where she currently resides. #Anemia Mildly low hemoglobin on admission of 11.3 w/ no previous to compare. No signs of bleeding. Iron panel WNL. Hgb stable at 11.7 #Pruritus w/ pruritus on UE and reports of rash. Continue Triamcinolone TID on discharge. #LE edema with ongoing complaints of LE edema on outpatient basis secondary to chronic venous stasis/insufficiency Echo obtained 02/25: EF 60-65%. no valvular abnormalities. Grade I diastolic dysfunction. No Pericardial effusion. wear iliana stockings, elevate legs. #GERD- restart Protonix as patient w/ continued complaints of indigestion. #Allergies - Continue Claritin Discharged back to the [facility] on 03/01 to await transportation to [place] for her fdc house. Admission HPI Per Admitting Provider 45 years old female with PMH of FULL CODE @ home alone, obesity with BMI 38.8 (height 170.18 cm; weight 112.4 kg), hyperlipidemia on atorvastatin 20mg PO qhs, allergic rhinitis on loratadine 10mg PO daily, hypothyroidism on synthroid 224ug PO daily, non-diabetic peripheral neuropathy of the bilateral feet on gabapentin 300mg PO tid, and a raft of mental health issues including: former nicotine dependence/tobacco abuse, no subsequent development of COPD, not on home O2 or home steroids, instead, patient currently vapes, but not on a daily basis, and with the last vaping session having occurred 3 weeks ago, former opiate abuse now on subutex 2mg SL bid, bipolar disorder on lurasidone 40mg PO qpm, topamax 25mg PO bid, major depression on doxepin 100mg PO qhs and fluoxetine 10mg PO daily, anxiety disorder on buspirone 15mg PO tid and hydroxyzine 50mg PO tid prn anxiety, insomnia disorder on trazodone 100mg PO qhs, attention deficit disorder on guanfacine 0.5mg PO bid, chronic pain disorder with muscle spasms in the back on cyclobenzaprine 5mg PO tid prn back spasms, who reports: "My lower back hurts. It goes down my right leg down to my right foot. I did not fall down or twist my back. I didn't bump into anything or anyone. I didn't pass out. My lower back and right leg and whole body, actually, feels like it's on fire and freezing, sharp and cool, then numb, not tingly, everywhere, everything, all at once. The back pain started this afternoon at home (02/24/2025, 1:00pm). Get this too: my right forearm has had this itchy rash for the past 1 month, and so I scratch and I scratch, and I scratch some more, and it doesn't stop itching. My left arm is fine, completely fine. Then, for the past 2 nights, I have been sweating and my bedsheets have been soaked with sweat when I wake up in the morning. Then, today, I noted that my legs are balloons, see, I can press into my legs and my entire knuckle fits inside the dimple I make when I press my fingers into my legs. My breathing is fine. No problem there at all. It's my lower back. You think I have some herniated disks, doc?" Patient denies antecedent/coincident fevers, chills, cough, wheeze, sore throat, hemoptysis, shortness of breath, dyspnea on exertion, chest pains, palpitations, pleurisy, nausea, vomiting, diarrhea, abdominal pain, pelvic pain, hematemesis, hematochezia, melena, hematuria, dysuria, frequency, urgency, headaches, dizziness, lightheadedness, visual changes, hearing changes, weakness, falls, syncope, trauma, travel history, sick contacts, or food/drug ingestions novel or new. All other review of systems are reported as negative by the patient on observation date 02/24/2025. In [facility] ER bed #B10, patient was afebrile @ 37.3 degrees Celsius, HR 78, RR 18, O2 sat 96% on room air, and BP 178/73 (02/24/2025 1:59pm). Exam was noted for a non-tender spine, non-tender paraspinal exam (cervical, thoracic, lumbar), with straight leg raising positive for the RLE and straight leg raising negative for the LLE. In addition, there were no ecchymoses or hematoma(s) on the back, and no erythema, edema, induration, warmth, crepitus, fluctuance, discharge (sanguineous, serous, suppurative), ulceration, malodor, or lymphangitic streaking anywhere on the back or body. Patient did manifest with 3+ pitting pedal edema with extension to the mid-shins bilaterally, but sparing the upper shins bilaterally, knees, hips, and thighs. Abdomen was protuberant by virtue of patient's obesity with BMI 38.8 (height 170.18 cm; weight 112.4 kg), but non-distended and non-tender, with no fluid wave on auscultation/percussion of the abdomen from one side to the other side of the abdomen. Labs in [facility] ER bed #B10 were noted for: WBC 8.07, N60 L28 M7 E3 B1, Hb 11.6, MCV 90.5, MCHC 32.8, platelet 221 (02/24/2025, 2:00pm). INR 0.9 (02/24/2025, 2:00pm). Na 138, K 4.0, BUN 17, creatinine 1.11, glucose 117, Ca 9.1, Mg 2.2, AST 19, ALT 16, ALK PHOS 50, TBili 0.3 (02/24/2025, 2:00pm). Troponin-I #1 < 2.3 pg/mL (02/24/2025, 2:00pm). BNP 48 pg/mL (02/24/2025, 2:00pm). TSH 12.215 uIU/mL (02/24/2025, 2:00pm). Free T4 0.78 ng/dL (02/24/2025, 2:00pm). Free T3 2.85 pg/mL (02/24/2025, 2:00pm). U/A: LE-, nitrite- (02/24/2025, 2:00pm). D-dimer 330 ug/L (02/24/2025, 2:00pm). Additional testing in [facility] ER bed #B10 included: Portable CXR (02/24/2025, 1:57pm): 1. No infiltrate, effusion, cardiomegaly, pulmonary vascular congestion, or pneumothorax (by my review). CT abd/pelvis with IV contrast (02/24/2025, 2:02pm): 1. No acute findings in abdomen or pelvis. CTA chest (02/24/2025, 2:02pm): 1. No evidence for pulmonary embolism. 2. There is a small pericardial effusion and a trace right pleural effusion. CT brain without contrast (02/24/2025, 2:02pm): 1. No acute bleed, mass, or midline shift. EKG (02/24/2025, 2:03pm): NSR @ 76, NM 166, QTC 461, no acute ST depressions/elevations, TWI, or q waves (by my review). Patient was subsequently placed in OBSERVATION on the hospitalist service @ [facility] on 02/24/2025 with the following diagnoses: 1. Acute lower back pain of unclear etiology, R/O herniated nucleus pulposus, R/O acute vertebral fracture. 2. Acute normocytic, normochromic anemia with initial Hb 11.6 g/dL, MCV 90.5, MCHC 32.8 (02/24/2025, 2:00pm), of unclear etiology. 3. Acute onset of pruritic right forearm for the past 1 month and acute onset of night sweats for the past 2 nights, of unclear etiology. 4. Acute onset of bilateral lower extremity edema, of unclear etiology. 5. Incidental finding of "small pericardial effusion and a trace right pleural effusion" (as noted on 02/24/2025, 2:02pm CTA chest), of unclear etiology. To address #1, patient awaits MRI lumbar spine with/without IV contrast (02/24/2025, 7:05pm). In the interim, I have ordered tylenol 650mg PO q6 prn pain 1-3, headache, temp > 100.4 degrees Fahrenheit, dilaudid 2mg IV x 1 dose now (02/24/2025, 7:05pm), PT/OT Service evaluations in the 02/25/2025 am. To address #2, patient awaits repeat Hb testing in the 02/25/2025 am. I will reserve packed RBC transfusion for Hb level less than 7 g/dL in this patient who reports no mucosal bleeding and who remains hemodynamically stable. In the interim, I have ordered Fe, TIBC, and ferritin levels to see if patient suffers from iron deficiency anemia, thalassemia, anemia of chronic disease (e.g., hypothyroidism), or sideroblastic anemia. To address #3, patient has been started on hydrocortisone 1% cream applied topically to the right forearm qid prn pruritus. To address #4, patient awaits TTE (02/24/2025, 5:07pm) as patient has already ruled out for acute DVT of the lower extremities given normal D-dimer 330 ug/L (02/24/2025, 2:00pm). To address #5, patient awaits TTE (02/24/2025, 5:07pm). Of note, my clinical suspicion for acute CHF remains low as patient has no stigmata (e.g., pulse pressure narrowing, JVD, bibasilar crackles) on exam to suggest acute CHF. Discharge Exam Constitutional WD/WN, vitals as above Eyes PERRL, conjunctivae normal, anicteric sclerae Respiratory normal respiratory effort Skin no rashes, warm and dry Neurologic PERRL, EOMI, accommodation nl, no face palsy, no dysarthria Psychiatric A+Ox3, euthymic affect Discharge Plan Discharge Items Patient Disposition: Transfer Behavioral Health Fac Reason For Visit: BACK PAIN Discharge Diagnosis: 1. Chronic lumbago. 2. Normocytic, normochromic anemia. 3. Pruritus on right forearm. 4. Chronic diaastolic CHF with preserved LVEF 60-65%, grade I LV diastolic dysfunction (as noted on 02/24/2025, 7:26am TTE, CARDS Dr. Mynor Guadarrama). Condition on Discharge: Fair Activity: Resume your previous activity Lifting: Gradually increase as tolerated Bathing: No limitations Sexual Activity: When tolerated Exercise/Sports: As tolerated Driving/Machine Use: No limitations Weightbearing: Full weightbearing Non-emergency contact: Primary Care Provider Call non-emergency contact if: you have any medication questions Follow-up/Referrals: Tanya Smith [Primary Care Provider] - Diet: Heart Healthy Addtl Attending Provider Instructions: See your PCP within 5-7 days of hospital discharge from [facility]. Please use Zanaflex three times daily for your back pain. Please use Triamcinolone Acetonide cream for your rash & itching. Pending Studies at Discharge: No Stand-Alone Forms: My [facility] Medications and DC Order Prescriptions: New hydrocortisone 1 % Ointment 1 applic EXT QID PRN (Reason: itching) Qty: 30 0RF tizanidine 4 mg capsule 4 mg PO Q8H Qty: 90 0RF topiramate 50 mg Tablet 50 mg PO BID Qty: 60 0RF lurasidone 20 mg Tablet 60 mg PO QPM Qty: 30 0RF triamcinolone acetonide 0.1 % Cream 1 applic EXT TID Qty: 15 0RF pantoprazole 40 mg Tablet,Delayed Release (Dr/Ec) 40 mg PO QAM Qty: 30 0RF levothyroxine [Synthroid] 125 mcg Tablet 250 mcg PO DAILY@0600 Qty: 30 0RF Continued atorvastatin 20 mg Tablet 20 mg PO HS buspirone 15 mg Tablet 15 mg PO TID doxepin 100 mg Capsule 100 mg PO HS fluoxetine 10 mg Capsule 10 mg PO DAILY docusate sodium 100 mg Capsule 100 mg PO DAILY gabapentin 300 mg Capsule 300 mg PO TID buprenorphine HCl 2 mg Tablet, Sublingual 2 mg SUBLINGUAL BID cholecalciferol (vitamin D3) [Vitamin D3] 25 mcg (1,000 unit) Tablet 50 mcg PO QDB hydroxyzine HCl 50 mg Tablet 50 mg PO TID PRN (Reason: Anxiety) trazodone 100 mg Tablet 100 mg PO HS guanfacine 1 mg Tablet 0.5 mg PO BID Rx Instructions: 1/2 OF A 1 MG TABLET HOLD FOR BP <99/55 OR HR <60 nicotine 21 mg/24 hr Patch 24 Hour 1 patch TRANSDERMAL DAILY PRN (Reason: Smoking Cessation) ibuprofen 600 mg Tablet 600 mg PO Q6H PRN (Reason: Inflammation) ondansetron 4 mg Tablet,Disintegrating 4 mg PO TID PRN (Reason: Nausea) loratadine 10 mg Tablet 10 mg PO DAILY triamcinolone acetonide-l.s.b. 0.1 % Cream 1 applic TOPICAL TID PRN (Reason: ECZEMA) lidocaine HCl 4 % Adhesive Patch,Medicated 1 patch topical DAILY MDD 3 PATCHES PER APPLICATION Rx Instructions: TRANSDERMALLY ONCE A DAY FOR LUMBAGO acetaminophen [Tylenol] 325 mg Tablet 650 mg PO Q6 MDD 4 PRN (Reason: Pain) calcium carbonate 500 mg calcium (1,250 mg) Tablet,Chewable 500 mg PO BID PRN (Reason: REFLUX) Discontinued levothyroxine 112 mcg Tablet 224 mcg PO DAILYBB Rx Instructions: GIVE AT 0600 topiramate [Topamax] 25 mg Tablet 25 mg PO BID cyclobenzaprine 5 mg Tablet 5 mg PO TID PRN (Reason: BACK SPASMS) lurasidone 40 mg Tablet 40 mg PO QPM Rx Instructions: must administer with food (at least 350 calories) GIVE AT 1700 Discharge Orders: Discharge Order (Routine); Ordered 03/01/25 Ordered By: Carli Heller Admission Data Admit Date/Time: 02/27/25 08:50 Attending Provider: Becca Whitmore Admit Provider: Donis Mehta Primary Care Provider: Tanya Smith Other Providers: Donis Mehta; Sabra Brewer; Ramon Sue; Candice Atkins; Brigid Stroud; Richar Gilliland; Mina Umana; [facility] Hospital Stay Data Consultations 02/24/25 16:27 ED Decision to Admit Stat 02/27/25 08:50 Consult Psychiatry Routine Diagnostic Imagining Performed 02/24/25 14:02 CT abd pelvis IV con only Stat CT angio chest PE protocol Stat CT head/brain wo con Stat 02/25/25 19:05 MR lumbar spine wo/w con Stat 02/26/25 16:44 CT Brain [CT head/brain wo/w con] Stat 02/27/25 10:51 US thyroid Routine Pending Results Patient Have Any Pending Studies at Discharge: No Discharge Instructions Given to Patient (Per Discharging Provider) See your PCP within 5-7 days of hospital discharge from [facility]. Please use Zanaflex three times daily for your back pain. Please use Triamcinolone Acetonide cream for your rash & itching. Total Time Total Time Spent Total Time Spent (In Minutes): 45 Total Time Includes: Examination of the Patient, Discharge Planning, Medication Reconciliation and Communication With Other Providers Coding Level of Care Code 62190 INP/OBS DISCH >30 MIN Diagnoses Back pain M54.9 Normocytic normochromic anemia D64.9 Pruritus L29.9 Leg edema R60.0 Hypothyroid E03.9 Thyroiditis E06.9
== END 2025-03-01 13:07 | DRG 552 ==
LOC: SUATTDRO → ED 13:52 → EDINP 13:52 → SUATTDRO 17:04 → 3W 19:55 → SUATTDRO 02-27 08:50